=== PATIENT | female | born 1960 | race Hispanic/Latino ===

== ENCOUNTER 2018-10-25 08:46 | Emergency (ER) | payer OTHER ==
--- OUTSIDE RECORDS SUMMARY | 2018-10-25 08:55 | XMS REPORT ---
:1960 [facility] Address [address] [place] [address] Dr. Mazariegos. [address] [place] [id number] Care Team Providers Name Role Phone Unavailable Unavailable Unavailable Problems This patient has no known problems. Allergies, Adverse Reactions, Alerts This patient has no known allergies or adverse reactions. Medications This patient has no known medications.
[2018-10-25 09:12] LABS: Absolute Lymphocytes (CBC) 0.3 K/uL (0.7-4.9); Basophils % 0.3 % (0-1.3); Hematocrit 45.3 % (36.0-45.0); MPV 9.3 fL (7.6-11.3); Monocytes % 2.7 % (3.3-12.3); RBC Red Blood Cell Count 5.13 M/uL (3.86-4.86)
[2018-10-25] MEDS ORDERED: ONDANSETRON 4 MG/2 ML VIAL ONE (09:18)
[2018-10-25] MEDS ORDERED: MEPERIDINE HCL 25 MG/0.5 ML ONE (09:18)
[2018-10-25 09:34] LABS: Albumin 4.4 g/dL (3.4-5.0); Bilirubin Direct 0.3 mg/dL (0-0.2); Bilirubin Total 1.8 mg/dL (0.2-1.0); Potassium 3.6 mmol/L (3.5-5.1); Protein, Total 8.5 g/dL (6.4-8.2)
[2018-10-25] MEDS ORDERED: NA CHLORIDE 0.9% 1,000 ML ONE (10:00)
[2018-10-25 10:29] LABS: Blood Morphology Comment NOT SEEN (NOT SEEN); Platelet Estimate ADEQ; Urine White Blood Cell Casts OK
--- NOTE | 2018-10-25 10:30 | RAD REPORT ---
EXAM DESCRIPTION: CTAbdomen Pelvis W Contrast - 10/25/2018 10:22 am CLINICAL HISTORY: Abdominal pain. Abd pain;Nausea / vomiting COMPARISON: No comparisons TECHNIQUE: Biphasic CT imaging of the abdomen and pelvis was performed with 100 ml non-ionic IV cont rast. All CT scans are performed using dose optimization technique as appropriate and may include automated exposure control or mA/KV adjustment according to patient size. FINDINGS: The lung bases are clear. Diffuse fatty liver. Cholecystectomy clips. The spleen, pancreas, adrenal glands and kidneys are with in normal limits. No bowel obstruction, free air, free fluid or abscess. Prominent sigmoid diverticulosis coli in the l eft lower quadrant seen with surrounding reticulation in pericolonic fat suggesting very early acute diverticulitis. No abscess. The appendix is normal. No evidence of significant lymphadenopathy. No suspicious bony findings. IMPRESSION: Very early left lower quadrant sigmoid acute diverticulitis is suspected. Prominent fatty liver infiltration.
[2018-10-25] MEDS ORDERED: CIPROFLOXACIN 400mg IV 400 MG/200 ML BAG IV ONE (11:21)
[2018-10-25] MEDS ORDERED: METRONIDAZOLE 500mg IVPB 500 MG/100 ML BAG IV ONE (11:21)
--- NOTE | 2018-10-25 11:21 | ER ---
Nurse's Notes [facility] Name: Diamond Sterling Age: 58 yrs Sex: Female : 1960 Arrival Date: 10/25/2018 Time: 08:50 Bed 7 Private MD: Unknown, Unknown Diagnosis: Diverticulitis of large intestine without perforation or abscess without bleeding Presentation: 10/25 08:56 Presenting complaint: Patient states: upper abdominal pain, vomiting, diarrhea, fever iw since last night. Transition of care: patient was not received from another setting of care. Onset of symptoms was October 24, 2018. Risk Assessment: Do you want to hurt yourself or someone else? Patient reports no desire to harm self or others. Initial Sepsis Screen: Does the patient meet any 2 criteria? No. Patient's initial sepsis screen is negative. Does the patient have a suspected source of infection? No. Patient's initial sepsis screen is negative. Care prior to arrival: None. 08:56 Method Of Arrival: Ambulatory iw 08:56 Acuity: SANIA 3 iw Triage Assessment: 09:00 General: Appears in no apparent distress. comfortable, Behavior is cooperative, bp appropriate for age, anxious. Pain: Complains of pain in abdomen. EENT: No deficits noted. Neuro: Level of Consciousness is awake, alert, obeys commands, Oriented to person, place, time, situation, Appropriate for age. Cardiovascular: No deficits noted. Respiratory: No deficits noted. GI: Reports upper abdominal pain, diarrhea, nausea, vomiting. : No signs and/or symptoms were reported regarding the genitourinary system. Derm: No deficits noted. Musculoskeletal: No deficits noted. Historical: - Allergies: 08:59 Benadryl; iw - Home Meds: 08:59 Lisinopril Oral once daily [Active]; Metoprolol Tartrate Oral [Active]; unknown anxiety iw medicine [Active]; - PMHx: 08:59 Anxiety; Hypertension; Migraines; iw - PSHx: 08:59 ; Cholecystectomy; iw - Immunization history:: Adult Immunizations not up to date. - Social history:: Smoking status: Patient/guardian denies using tobacco. - Ebola Screening: : Patient negative for fever greater than or equal to 101.5 degrees Fahrenheit, and additional compatible Ebola Virus Disease symptoms Patient denies exposure to infectious person Patient denies travel to an Ebola-affected area in the 21 days before illness onset No symptoms or risks identified at this time. - Family history:: not pertinent. - Hospitalizations: : No recent hospitalization is reported. Screenin:58 Abuse screen: Denies threats or abuse. Denies injuries from another. Nutritional bp screening: No deficits noted. Tuberculosis screening: No symptoms or risk factors identified. Fall Risk None identified. Assessment: 08:57 General: Appears in no apparent distress. comfortable, Behavior is cooperative, bp appropriate for age, anxious. Pain: Complains of pain in abdomen. Neuro: No deficits noted. Cardiovascular: No deficits noted. Respiratory: Airway is patent Respiratory effort is even, unlabored, Respiratory pattern is regular, symmetrical. GI: Abdomen is non-distended, Bowel sounds present X 4 quads. : No signs and/or symptoms were reported regarding the genitourinary system. EENT: No deficits noted. Derm: No deficits noted. Musculoskeletal: No deficits noted. 09:48 Reassessment: CT PENDING, IVF INFUSING. bp 11:16 Reassessment: ALL CURRENT ORDERS COMPLETED, ABX INFUSING. bp 12:54 Reassessment: PT D/C HOME AMBULATORY WITH FAMILY, DX WITH DIVERTICULITIS. bp Vital Signs: 08:59 BP 124 / 84; Pulse 110; Resp 16 S; Temp 97.6(TE); Pulse Ox 98% on R/A; Weight 58.97 kg; iw Height 4 ft. 10 in. (147.32 cm); Pain 10/10; 09:49 BP 107 / 74; Pulse 106; Resp 18; Pulse Ox 95% ; bp 11:00 BP 111 / 71; Pulse 93; Resp 16; Pulse Ox 97% ; bp 12:55 BP 116 / 92; Pulse 86; Resp 16; Temp 98; Pulse Ox 96% ; bp 08:59 Body Mass Index 27.17 (58.97 kg, 147.32 cm) iw ED Course: 08:50 Patient arrived in ED. ag5 08:50 Unknown, Unknown is Private Physician. ag5 08:51 Rohan Cabrera MD is Attending Physician. rn 08:53 Maxwell Altman, YAMILETH is Primary Nurse. bp 08:57 Triage completed. iw 08:58 Patient has correct armband on for positive identification. Bed in low position. Call bp light in reach. Side rails up X2. Adult w/ patient. 08:59 Arm band placed on. iw 09:08 Radiology exam delayed due to lab results not completed at this time. (BUN/Creatinine). vm2 09:08 Inserted saline lock: 20 gauge in right antecubital area, using aseptic technique. ag Blood collected. 09:08 Basic Metabolic Panel Sent. ag 09:08 CBC with Diff Sent. ag 09:08 Hepatic Function Sent. ag 09:08 Lipase Sent. ag 10:22 CT Abd/Pelvis - IV Contrast Only In Process Unspecified. EDMS 12:56 No provider procedures requiring assistance completed. IV discontinued, intact, bp bleeding controlled, No redness/swelling at site. Pressure dressing applied. Administered Medications: 09:09 Drug: Zofran 4 mg Route: IVP; Site: right antecubital; bp 09:48 Follow up: Response: Nausea is decreased bp 09:09 Drug: Demerol 25 mg Route: IVP; Site: right antecubital; bp 09:48 Follow up: Response: Pain is decreased bp 09:47 Drug: NS 0.9% 1000 ml Route: IV; Rate: 1000 ml; Site: right antecubital; bp 11:00 Follow up: IV Status: Completed infusion; IV Intake: 1000ml bp 11:14 Drug: Flagyl 500 mg Volume: 100 ml; Route: IVPB; Rate: 200 ml/hr; Infused Over: 30 bp mins; Site: right antecubital; 11:46 Follow up: IV Status: Completed infusion; IV Intake: 100ml bp 11:46 Drug: Cipro 400 mg Volume: 200 ml; Route: IVPB; Infused Over: 60 mins; Site: right bp antecubital; 12:57 Follow up: IV Status: Completed infusion; IV Intake: 200ml bp Intake: 11:00 IV: 1000ml; Total: 1000ml. bp 11:46 IV: 100ml; Total: 1100ml. bp 12:57 IV: 200ml; Total: 1300ml. bp Outcome: 11:20 Discharge ordered by . rn 12:55 Discharged to home ambulatory, with family. bp 12:55 Condition: stable 12:55 Discharge instructions given to patient, Instructed on discharge instructions, follow up and referral plans. medication usage, Demonstrated understanding of instructions, follow-up care, medications, Prescriptions given X 4. 12:58 Patient left the ED. bp Signatures: Dispatcher [employer] Luisa Mojica RN RN iw Nieto, Roman, MD MD rn Gallardo, Ana ag McGuire, [facility] Maxwell Altman RN RN bp Gaskin, Ajare ag5
--- NOTE | 2018-10-25 11:21 | EDPHYS ---
Physician Documentation [facility] Name: Diamond Sterling Age: 58 yrs Sex: Female : 1960 Arrival Date: 10/25/2018 Time: 08:50 Bed 7 Private MD: Unknown, Unknown ED Physician Rohan Cabrera HPI: 10/25 09:00 This 58 yrs old Female presents to ER via Ambulatory with complaints of rn Nausea/Vomiting/Diarrhea, Fever, Abdominal Pain. 09:00 The patient presents to the emergency department with nausea, vomiting, diarrhea, rn abdominal pain, of the abdomen diffusely. Onset: The symptoms/episode began/occurred yesterday. Possible causes: unknown. The symptoms are aggravated by nothing. The symptoms are alleviated by nothing. Severity of symptoms: At their worst the symptoms were moderate in the emergency department the symptoms are unchanged. The patient has experienced a previous episode. Reports ate subway yesterday, felt ok, then sudden onset mid abd pain, assoc with nausea/vomiting/diarrhea, has had before and went away after a few days, + cholecystectomy in past, no fever. . Historical: - Allergies: 08:59 Benadryl; iw - Home Meds: 08:59 Lisinopril Oral once daily [Active]; Metoprolol Tartrate Oral [Active]; unknown anxiety iw medicine [Active]; - PMHx: 08:59 Anxiety; Hypertension; Migraines; iw - PSHx: 08:59 ; Cholecystectomy; iw - Immunization history:: Adult Immunizations not up to date. - Social history:: Smoking status: Patient/guardian denies using tobacco. - Ebola Screening: : Patient negative for fever greater than or equal to 101.5 degrees Fahrenheit, and additional compatible Ebola Virus Disease symptoms Patient denies exposure to infectious person Patient denies travel to an Ebola-affected area in the 21 days before illness onset No symptoms or risks identified at this time. - Family history:: not pertinent. - Hospitalizations: : No recent hospitalization is reported. ROS: 09:00 Constitutional: Negative for fever, chills, and weight loss, Eyes: Negative for injury, rn pain, redness, and discharge, Neck: Negative for injury, pain, and swelling, Cardiovascular: Negative for chest pain, palpitations, and edema, Respiratory: Negative for shortness of breath, cough, wheezing, and pleuritic chest pain, Abdomen/GI: + abd pain with nausea/vomiting/diarrhea MS/Extremity: Negative for injury and deformity, Skin: Negative for injury, rash, and discoloration, Neuro: Negative for headache, weakness, numbness, tingling, and seizure. Exam: 09:00 Constitutional: This is a well developed, well nourished patient who is awake, alert, rn and in no acute distress. Head/Face: Normocephalic, atraumatic. ENT: MMM Cardiovascular: Tachycardic, regular, no murmur Respiratory: Lungs have equal breath sounds bilaterally, clear to auscultation Abdomen/GI: soft, + tenderness in all quadrants, no rebound, no masses Skin: Warm, dry with normal turgor. Normal color with no rashes, no lesions, and no evidence of cellulitis. MS/ Extremity: Pulses equal, no cyanosis. Neurovascular intact. Full, normal range of motion. Equal circumference. Neuro: Awake and alert, GCS 15, oriented to person, place, time, and situation. Cranial nerves II-XII grossly intact. Motor strength 5/5 in all extremities. Sensory grossly intact. Cerebellar exam normal. Normal gait. Vital Signs: 08:59 BP 124 / 84; Pulse 110; Resp 16 S; Temp 97.6(TE); Pulse Ox 98% on R/A; Weight 58.97 kg; iw Height 4 ft. 10 in. (147.32 cm); Pain 10/10; 09:49 BP 107 / 74; Pulse 106; Resp 18; Pulse Ox 95% ; bp 11:00 BP 111 / 71; Pulse 93; Resp 16; Pulse Ox 97% ; bp 12:55 BP 116 / 92; Pulse 86; Resp 16; Temp 98; Pulse Ox 96% ; bp 08:59 Body Mass Index 27.17 (58.97 kg, 147.32 cm) iw MDM: 08:51 Patient medically screened. rn 11:19 Differential diagnosis: diverticulitis, viral gastroenteritis, gastroenteritis. Data rn reviewed: vital signs, nurses notes, lab test result(s), radiologic studies, CT scan, and as a result, I will discharge patient. Counseling: I had a detailed discussion with the patient and/or guardian regarding: the historical points, exam findings, and any diagnostic results supporting the discharge/admit diagnosis, lab results, radiology results, the need for outpatient follow up, to return to the emergency department if symptoms worsen or persist or if there are any questions or concerns that arise at home. Response to treatment: the patient's symptoms have markedly improved after treatment, and as a result, I will discharge patient. Special discussion: I discussed with the patient/guardian in detail that at this point there is no indication for admission to the hospital. It is understood, however, that if the symptoms persist or worsen the patient needs to return immediately for re-evaluation. 10/25 08:58 Order name: Basic Metabolic Panel; Complete Time: 09:42 rn 10/25 08:58 Order name: CBC with Diff; Complete Time: 10:31 rn 10/25 08:58 Order name: Hepatic Function; Complete Time: 09:42 rn 10/25 08:58 Order name: Lipase; Complete Time: 09:42 rn 10/25 08:58 Order name: CT Abd/Pelvis - IV Contrast Only; Complete Time: 10:31 rn 10/25 10:29 Order name: CBC Smear Scan; Complete Time: 10:31 EDMS 10/25 08:58 Order name: IV Saline Lock; Complete Time: 09:08 rn 10/25 08:58 Order name: Labs collected and sent; Complete Time: 09:09 rn Administered Medications: 09:09 Drug: Zofran 4 mg Route: IVP; Site: right antecubital; bp 09:48 Follow up: Response: Nausea is decreased bp 09:09 Drug: Demerol 25 mg Route: IVP; Site: right antecubital; bp 09:48 Follow up: Response: Pain is decreased bp 09:47 Drug: NS 0.9% 1000 ml Route: IV; Rate: 1000 ml; Site: right antecubital; bp 11:00 Follow up: IV Status: Completed infusion; IV Intake: 1000ml bp 11:14 Drug: Flagyl 500 mg Volume: 100 ml; Route: IVPB; Rate: 200 ml/hr; Infused Over: 30 bp mins; Site: right antecubital; 11:46 Follow up: IV Status: Completed infusion; IV Intake: 100ml bp 11:46 Drug: Cipro 400 mg Volume: 200 ml; Route: IVPB; Infused Over: 60 mins; Site: right bp antecubital; 12:57 Follow up: IV Status: Completed infusion; IV Intake: 200ml bp Disposition: 10/25/18 11:20 Discharged to Home. Impression: Diverticulitis of large intestine without perforation or abscess without bleeding. - Condition is Stable. - Discharge Instructions: Diverticulitis. - Prescriptions for Zofran ODT 4 mg Oral tablet,disintegrating - place 1 tablet by TRANSLINGUAL route every 8 hours As needed; 15 tablet. Flagyl 500 mg Oral Tablet - take 1 tablet by ORAL route every 8 hours for 10 days; 30 tablet. Tylenol- Codeine #3 300-30 mg Oral Tablet - take 1 tablet by ORAL route every 6 hours As needed; 15 tablet. Cipro 500 mg Oral Tablet - take 1 tablet by ORAL route every 12 hours for 10 days; 20 tablet. - Medication Reconciliation Form, Thank You Letter, Antibiotic Education, Prescription Opioid Use, Work release form form. - Follow up: Private Physician; When: As needed; Reason: Recheck today's complaints, Re-evaluation by your physician. - Problem is new. - Symptoms have improved. Signatures: Dispatcher [employer] EDLuisa Mora RN RN iw Nieto, Roman, MD MD rn Peltier, Brian, RN RN bp Corrections: (The following items were deleted from the chart) 12:58 11:20 10/25/2018 11:20 Discharged to Home. Impression: Diverticulitis of large bp intestine without perforation or abscess without bleeding. Condition is Stable. Forms are Medication Reconciliation Form, Thank You Letter, Antibiotic Education, Prescription Opioid Use. Follow up: Private Physician; When: As needed; Reason: Recheck today's complaints, Re-evaluation by your physician. Problem is new. Symptoms have improved. rn
== END 2018-10-25 12:58 | disposition home or self-care (01) ==
LOC: ER 08:46
DX: K57.32 Diverticulitis of large intestine without perforation or abscess without bleeding (principal); I10 Essential (primary) hypertension; F41.9 Anxiety disorder, unspecified
CPT/HCPCS: 36415; 74177; 80048; 80076; 83690; 85025; 96361; 96365; 96367; 96375; 99284; J0744; J2175; J2405; J7030; Q9967

== ENCOUNTER 2018-12-07 09:20 | Emergency (ER) | payer OTHER ==
--- OUTSIDE RECORDS SUMMARY | 2018-12-07 09:22 | XMS REPORT ---
:1960 [facility] Address [address] [place] [address] Dr. Mazariegos. [address] [place] [id number] Care Team Providers Name Role Phone Unavailable Unavailable Unavailable Problems This patient has no known problems. Allergies, Adverse Reactions, Alerts This patient has no known allergies or adverse reactions. Medications This patient has no known medications.
[2018-12-07] MEDS ORDERED: NA CHLORIDE 0.9% 1,000 ML ONE (09:58)
[2018-12-07] MEDS ORDERED: ONDANSETRON 4 MG/2 ML VIAL ONE (09:58)
[2018-12-07 10:18] LABS: Absolute Lymphocytes (CBC) 1.1 K/uL (0.7-4.9); Basophils % 0.5 % (0-1.3); Hematocrit 36.8 % (36.0-45.0); Lymphocytes % 18.5 % (15.3-44.8); MPV 9.3 fL (7.6-11.3); RBC Red Blood Cell Count 4.21 M/uL (3.86-4.86)
[2018-12-07 10:43] LABS: Urine Blood TRACE (NEG); Urine Glucose NEGATIVE (NEG); Urine Protein NEGATIVE (NEG); Urine Specific Gravity 1.025 (1.005-1.030); Urine pH 5.5 (5.0-7.0)
[2018-12-07 10:45] LABS: Urine Bacteria NONE SEEN /HPF (<20); Urine Culture Reflex Order NOT NEEDED; Urine Mucus LIGHT /HPF (NONE SEEN); Urine RBC <5 /HPF (NONE SEEN)
[2018-12-07 10:46] LABS: Potassium 3.3 mmol/L (3.5-5.1)
[2018-12-07] MEDS ORDERED: POTASSIUM CL SA 10 MEQ TAB PO ONE (11:21)
--- NOTE | 2018-12-07 11:29 | RAD REPORT ---
EXAM DESCRIPTION: CT - Abdomen Pelvis W Contrast - 12/07/2018 11:05 am CLINICAL HISTORY: ABD PAIN, history of diverticulitis, prior cholecystectomy COMPARISON: April 27, 2018 CT study TECHNIQUE: Biphasic, helical CT imaging of the abdomen and pelvis was performed following 100 ml non -ionic IV contrast. Oral contrast was given. All CT scans are performed using dose optimization technique as appropriate and may include automated exposure control or mA/KV adjustment according to patient size. FINDINGS: No suspicious findings in the lung bases. Fatty infiltration is present in the liver. No focal liver lesion identified. Spleen and pancreas [place] w no suspicious findings. Gallbladder is absent. Biliary tree within normal limits for a post cholecy stectomy patient. Symmetric renal function is seen with no hydronephrosis or suspicious renal mass. No pyelonephritis o r acute parenchymal process. No bladder abnormalities. No adrenal abnormalities. Uterus and ovaries s how no suspicious findings. No gastric dilatation or wall thickening. A small hiatal hernia is present. No small bowel abnormalit y seen. The appendix is normal. Colon from cecum to hepatic flexure shows no suspicious finding. Ther e is descending and sigmoid diverticulosis. In the mid sigmoid colon there is wall thickening. Minima l amount of stranding is present in the adjacent fat. No abscess or extraluminal air. Patient gives a history of diverticulitis 1 month earlier. Sigmoid findings are more prominent than seen on the October 25 study. It is unknown if the patient's diverticulitis diagnosis was subsequent to the October 25 stud y. Current presentation could be mild acute diverticulitis or remnant diverticulitis from a prior hector dy. Colon malignancy is not excluded but warrants follow-up colonoscopy after all medical management is completed. No free air, free fluid or pneumatosis. No other areas of inflammatory stranding. No mass or bulky lymphadenopathy. Small fat only umbilical hernia present. No suspicious bony findings. IMPRESSION: Mild sigmoid diverticulitis findings are evident more prominent than seen on the October 25 study. Patient gives a history of diverticulitis 1 month earlier. It is unknown if that diagnosis was made s ubsequent to the October 25 CT study. No abscess, free air or surgically emergent complication. The current sigmoid presentation could represent a new diverticulitis or may represent remnant from t he prior diagnosis. Colon mass cannot be excluded and colonoscopy is needed following completion of all medical managemen t.
--- NOTE | 2018-12-07 11:58 | ER ---
Nurse's Notes [facility] Name: Diamond Sterling Age: 58 yrs Sex: Female : 1960 Arrival Date: 12/07/2018 Time: 09:22 Bed 8 Private MD: Diagnosis: Diverticulitis of intestine, part unspecified, without perforation or abscess without bleeding Presentation: 12/07 09:46 Presenting complaint: Patient states: generalized abd pain. Patient reports that she ss had diverticulitis months ago and it feels the same. Transition of care: patient was not received from another setting of care. Onset of symptoms is unknown. Risk Assessment: Do you want to hurt yourself or someone else? Patient reports no desire to harm self or others. Initial Sepsis Screen: Does the patient meet any 2 criteria? No. Patient's initial sepsis screen is negative. Does the patient have a suspected source of infection? No. Patient's initial sepsis screen is negative. Care prior to arrival: None. 09:46 Method Of Arrival: Ambulatory ss 09:46 Acuity: SANIA 3 ss Triage Assessment: 09:50 General: Appears in no apparent distress. comfortable, Behavior is cooperative, bp appropriate for age, anxious. Pain: Complains of pain in abdomen. EENT: No deficits noted. Neuro: No deficits noted. Cardiovascular: No deficits noted. Respiratory: No deficits noted. GI: Reports lower abdominal pain, nausea. : No deficits noted. Derm: No deficits noted. Musculoskeletal: No deficits noted. Historical: - Allergies: 09:48 Benadryl; ss - PMHx: 09:48 Anxiety; Hypertension; Migraines; Diverticulitis; ss - PSHx: 09:48 ; Cholecystectomy; ss - Immunization history:: Adult Immunizations up to date. - Social history:: Smoking status: Patient/guardian denies using tobacco. - Ebola Screening: : Patient denies exposure to infectious person Patient denies travel to an Ebola-affected area in the 21 days before illness onset. Screenin:00 Abuse screen: Denies threats or abuse. Denies injuries from another. Nutritional bp screening: No deficits noted. Tuberculosis screening: No symptoms or risk factors identified. Fall Risk None identified. Assessment: 09:50 General: SEE TRIAGE NOTE. bp 10:10 GI: Bowel sounds present X 4 quads. Abd is soft X 4 quads. bp 11:47 Reassessment: ALL CURRENT ORDERS COMPLETED, CT RESULTS PENDING. bp 12:15 Reassessment: PT D/C HOME AMBULATORY, DX WITH DIVERTICULITIS. bp Vital Signs: 09:48 BP 147 / 83; Pulse 90; Resp 16; Temp 98.0(TE); Pulse Ox 98% on R/A; Weight 54.43 kg; ss Height 4 ft. 10 in. (147.32 cm); Pain 0/10; 10:39 BP 123 / 77; Pulse 81; Resp 18; Pulse Ox 95% on R/A; ph 11:47 BP 119 / 70; Pulse 86; Resp 16; Pulse Ox 99% ; bp 12:15 BP 114 / 61; Pulse 86; Resp 16; Temp 98; Pulse Ox 97% ; bp 09:48 Body Mass Index 25.08 (54.43 kg, 147.32 cm) ED Course: 09:22 Patient arrived in ED. mr 09:23 Gricelda Bahena, [facility]F [facility] kb 09:23 Yevgeniy Braun MD is Attending Physician. kb 09:38 Maxwell Altman, YAMILETH is Primary Nurse. bp 09:48 Triage completed. ss 09:48 Arm band placed on right wrist. ss 09:50 Radiology exam delayed due to lab results not completed at this time. (BUN/Creatinine). kw1 10:00 Patient has correct armband on for positive identification. Placed in gown. Bed in low bp position. Call light in reach. Side rails up X2. 10:10 Inserted saline lock: 20 gauge in right forearm, using aseptic technique. Blood bp collected. 11:04 CT completed. Patient tolerated procedure well. Patient moved to CT via stretcher. Patient moved back from CT. 11:23 CT Abd/Pelvis - IV Contrast Only In Process Unspecified. EDMS 12:16 No provider procedures requiring assistance completed. IV discontinued, intact, bp bleeding controlled, No redness/swelling at site. Pressure dressing applied. Administered Medications: 10:08 Drug: NS 0.9% 1000 ml Route: IV; Rate: 1000 ml; Site: right forearm; bp 12:09 Follow up: IV Status: Completed infusion bp 10:09 Drug: Zofran 4 mg Route: IVP; Site: right forearm; bp 11:18 Follow up: Response: No adverse reaction bp 11:26 Drug: Potassium Chloride 20 mEq Route: PO; rv 11:59 Follow up: Response: No adverse reaction bp 12:09 Drug: Cipro 500 mg Route: PO; bp 12:15 Follow up: Response: Medication administered at discharge. bp 12:09 Drug: Flagyl 500 mg Route: PO; bp 12:14 Follow up: Response: No adverse reaction; Medication administered at discharge. bp Outcome: 11:57 Discharge ordered by . mauri 12:16 Discharged to home ambulatory. bp 12:16 Condition: stable 12:16 Discharge instructions given to patient, Instructed on discharge instructions, follow up and referral plans. medication usage, Demonstrated understanding of instructions, follow-up care, medications, Prescriptions given X 4. 12:17 Patient left the ED. bp Signatures: Dispatcher [employer] EDMS Gricelda Bahena, EXTENSION PROFESSOR-C EXTENSION PROFESSOR-Yanet CatarinoLiliam mr Morillo, Yolie Mullins RN RN ss Sayra Davenport RN RN Maxwell Altman RN RN Gely Tovar kw1 Torin Quintana RN RN rv
--- NOTE | 2018-12-07 11:58 | EDPHYS ---
Physician Documentation [facility] Name: Diamond Sterling Age: 58 yrs Sex: Female : 1960 Arrival Date: 12/07/2018 Time: 09:22 Bed 8 Private MD: ED Physician Yevgeniy Braun HPI: 12/07 12:01 This 58 yrs old Female presents to ER via Ambulatory with complaints of kb Abdominal Pain. 12:01 The patient presents with abdominal pain in the left lower quadrant. Onset: The kb symptoms/episode began/occurred yesterday. The symptoms do not radiate. Associated signs and symptoms: Pertinent positives: nausea and vomiting. The symptoms are described as constant. Modifying factors: The symptoms are alleviated by nothing, the symptoms are aggravated by nothing. Severity of pain: At its worst the pain was moderate in the emergency department the pain is unchanged. The patient has experienced a previous episode. The patient has been recently seen at the [facility] Emergency Department, last month, for similar complaints. Pt reports she started feeling like she was getting sick a week ago. STates pain started yesterday, then got better. Today pain came back and has been constant. Was diagnosed with diverticulitis last month and it feels the same. States she didn't take her antibiotics like she was supposed to, only took it once a day and it was supposed to be three times per day. . Historical: - Allergies: 09:48 Benadryl; ss - PMHx: 09:48 Anxiety; Hypertension; Migraines; Diverticulitis; ss - PSHx: 09:48 ; Cholecystectomy; ss - Immunization history:: Adult Immunizations up to date. - Social history:: Smoking status: Patient/guardian denies using tobacco. - Ebola Screening: : Patient denies exposure to infectious person Patient denies travel to an Ebola-affected area in the 21 days before illness onset. ROS: 12:04 Constitutional: Negative for fever, chills, and weight loss, ENT: Negative for injury, kb pain, and discharge, Neck: Negative for injury, pain, and swelling, Cardiovascular: Negative for chest pain, palpitations, and edema, Respiratory: Negative for shortness of breath, cough, wheezing, and pleuritic chest pain, Back: Negative for injury and pain, : Negative for injury, bleeding, discharge, and swelling, MS/Extremity: Negative for injury and deformity, Skin: Negative for injury, rash, and discoloration, Neuro: Negative for headache, weakness, numbness, tingling, and seizure. 12:04 Abdomen/GI: Positive for abdominal pain, nausea and vomiting, Negative for diarrhea, constipation, abdominal cramps, abdominal distension, anorexia. Exam: 12:04 Constitutional: This is a well developed, well nourished patient who is awake, alert, kb and in no acute distress. Head/Face: Normocephalic, atraumatic. ENT: Nares patent. No nasal discharge, no septal abnormalities noted. Tympanic membranes are normal and external auditory canals are clear. Oropharynx with no redness, swelling, or masses, exudates, or evidence of obstruction, uvula midline. Mucous membranes moist. Neck: Trachea midline, no thyromegaly or masses palpated, and no cervical lymphadenopathy. Supple, full range of motion without nuchal rigidity, or vertebral point tenderness. No Meningismus. Chest/axilla: Normal chest wall appearance and motion. Nontender with no deformity. No lesions are appreciated. Cardiovascular: Regular rate and rhythm with a normal S1 and S2. No gallops, murmurs, or rubs. Normal PMI, no JVD. No pulse deficits. Respiratory: Lungs have equal breath sounds bilaterally, clear to auscultation and percussion. No rales, rhonchi or wheezes noted. No increased work of breathing, no retractions or nasal flaring. Back: No spinal tenderness. No costovertebral tenderness. Full range of motion. Skin: Warm, dry with normal turgor. Normal color with no rashes, no lesions, and no evidence of cellulitis. MS/ Extremity: Pulses equal, no cyanosis. Neurovascular intact. Full, normal range of motion. Neuro: Awake and alert, GCS 15, oriented to person, place, time, and situation. Cranial nerves II-XII grossly intact. Motor strength 5/5 in all extremities. Sensory grossly intact. Cerebellar exam normal. Normal gait. 12:04 Abdomen/GI: Inspection: abdomen appears normal, Bowel sounds: normal, in all quadrants, Palpation: soft, in all quadrants, moderate abdominal tenderness, in the left lower quadrant. Vital Signs: 09:48 BP 147 / 83; Pulse 90; Resp 16; Temp 98.0(TE); Pulse Ox 98% on R/A; Weight 54.43 kg; ss Height 4 ft. 10 in. (147.32 cm); Pain 0/10; 10:39 BP 123 / 77; Pulse 81; Resp 18; Pulse Ox 95% on R/A; ph 11:47 BP 119 / 70; Pulse 86; Resp 16; Pulse Ox 99% ; bp 12:15 BP 114 / 61; Pulse 86; Resp 16; Temp 98; Pulse Ox 97% ; bp 09:48 Body Mass Index 25.08 (54.43 kg, 147.32 cm) ss MDM: 09:31 Patient medically screened. kb 11:56 Data reviewed: vital signs, nurses notes. Data interpreted: Pulse oximetry: on room air kb is 99 %. Interpretation: normal. Counseling: I had a detailed discussion with the patient and/or guardian regarding: the historical points, exam findings, and any diagnostic results supporting the discharge/admit diagnosis, lab results, radiology results, the need for outpatient follow up, a family practitioner, to return to the emergency department if symptoms worsen or persist or if there are any questions or concerns that arise at home. 12:05 ED course: Educated on importance of taking all antibiotics as prescribed to treat kb infection. 12/07 09:47 Order name: Basic Metabolic Panel; Complete Time: 11:05 kb 12/07 09:47 Order name: CBC with Diff; Complete Time: 10:36 kb 12/07 09:47 Order name: Urine Microscopic Only; Complete Time: 11:05 kb 12/07 09:47 Order name: CT Abd/Pelvis - IV Contrast Only; Complete Time: 11:55 kb 12/07 10:10 Order name: Urine Dipstick--Ancillary (enter results); Complete Time: 10:45 sp 12/07 09:47 Order name: IV Saline Lock; Complete Time: 10:08 kb 12/07 09:47 Order name: Labs collected and sent; Complete Time: 10:08 kb 12/07 09:47 Order name: Urine Dipstick-Ancillary (obtain specimen); Complete Time: 10:08 kb Administered Medications: 10:08 Drug: NS 0.9% 1000 ml Route: IV; Rate: 1000 ml; Site: right forearm; bp 12:09 Follow up: IV Status: Completed infusion bp 10:09 Drug: Zofran 4 mg Route: IVP; Site: right forearm; bp 11:18 Follow up: Response: No adverse reaction bp 11:26 Drug: Potassium Chloride 20 mEq Route: PO; rv 11:59 Follow up: Response: No adverse reaction bp 12:09 Drug: Cipro 500 mg Route: PO; bp 12:15 Follow up: Response: Medication administered at discharge. bp 12:09 Drug: Flagyl 500 mg Route: PO; bp 12:14 Follow up: Response: No adverse reaction; Medication administered at discharge. bp Disposition: 16:36 Co-signature as Attending Physician, Yevgeniy Braun MD I agree with the assessment and selam plan of care. Disposition: 12/07/18 11:57 Discharged to Home. Impression: Diverticulitis of intestine, part unspecified, without perforation or abscess without bleeding. - Condition is Stable. - Discharge Instructions: Diverticulitis, [id number]. - Prescriptions for Flagyl 500 mg Oral Tablet - take 1 tablet by ORAL route every 8 hours for 10 days; 30 tablet. Zofran 4 mg Oral Tablet - take 1 tablet by ORAL route every 6 hours As needed; 20 tablet. Cipro 500 mg Oral Tablet - take 1 tablet by ORAL route every 12 hours for 10 days; 20 tablet. Diclofenac Sodium 75 mg Oral Tablet, Delayed Release (E.C.) - take 1 tablet by ORAL route 2 times per day As needed; 30 tablet. - Medication Reconciliation Form, Thank You Letter, Antibiotic Education, Prescription Opioid Use form. - Follow up: Emergency Department; When: As needed; Reason: Worsening of condition. Follow up: Private Physician; When: 2 - 3 days; Reason: Recheck today's complaints, Continuance of care, Re-evaluation by your physician. Signatures: Dispatcher [employer] EDCA Gricelda Bahena, ASAF DAILEY-Yevgeniy Rossi MD MD cha Smirch, Shelby, YAMILETH RN ss Maxwell Altman RN RN Torin Vincent, YAMILETH RN rv Corrections: (The following items were deleted from the chart) 12:17 11:57 12/07/2018 11:57 Discharged to Home. Impression: Diverticulitis of intestine, bp part unspecified, without perforation or abscess without bleeding. Condition is Stable. Forms are Medication Reconciliation Form, Thank You Letter, Antibiotic Education, Prescription Opioid Use. Follow up: Emergency Department; When: As needed; Reason: Worsening of condition. Follow up: Private Physician; When: 2 - 3 days; Reason: Recheck today's complaints, Continuance of care, Re-evaluation by your physician. kb
[2018-12-07] MEDS ORDERED: metroNIDAZOLE 500 MG TABLET ONE (12:04)
[2018-12-07] MEDS ORDERED: CIPROFLOXACIN HCL 500 MG TAB ONE (12:05)
== END 2018-12-07 12:17 | disposition home or self-care (01) ==
LOC: ER 09:20
DX: K57.92 Diverticulitis of intestine, part unspecified, without perforation or abscess without bleeding (principal); I10 Essential (primary) hypertension; Z88.8 Allergy status to other drugs, medicaments and biological substances
CPT/HCPCS: 96361; 85025; 80048; 36415; 74177; 96374; 99284; Q9967; J7030; J2405; 81003; 81015

== ENCOUNTER 2019-01-02 12:24 | Emergency (ER) | payer OTHER ==
--- OUTSIDE RECORDS SUMMARY | 2019-01-02 12:27 | XMS REPORT ---
:1960 [facility] Address [address] [place] [address] Dr. Mazariegos[address] [place] [id number] Care Team Providers Name Role Phone Unavailable Unavailable Unavailable Problems This patient has no known problems. Allergies, Adverse Reactions, Alerts This patient has no known allergies or adverse reactions. Medications This patient has no known medications.
[2019-01-02 12:51] LABS: Absolute Lymphocytes (CBC) 0.7 K/uL (0.7-4.9); Basophils % 0.2 % (0-1.3); Hematocrit 36.3 % (36.0-45.0); Lymphocytes % 6.5 % (15.3-44.8); RBC Red Blood Cell Count 4.08 M/uL (3.86-4.86)
[2019-01-02] MEDS ORDERED: NA CHLORIDE 0.9% 500 ML ONE (12:58)
[2019-01-02 13:46] LABS: Urine Blood NEGATIVE (NEG); Urine Glucose NEGATIVE (NEG); Urine Protein NEGATIVE (NEG); Urine pH 7.5 (5.0-7.0)
[2019-01-02 14:07] LABS: Albumin 3.9 g/dL (3.4-5.0); Bilirubin Direct 0.3 mg/dL (0-0.2); Bilirubin Total 1.7 mg/dL (0.2-1.0); Potassium 3.3 mmol/L (3.5-5.1); Protein, Total 7.3 g/dL (6.4-8.2)
--- NOTE | 2019-01-02 14:18 | RAD REPORT ---
EXAM DESCRIPTION: CT - Abdomen Pelvis Wo Contrast - 01/02/2019 1:55 pm CLINICAL HISTORY: left lower abdomen pain COMPARISON: Abdomen Pelvis W Contrast dated 12/07/2018 TECHNIQUE: Axial [address] imaging of the abdomen and pelvis was performed without IV contrast. No IV contrast was given because of allergy, abnormal renal function, patient refusal or physician re quest. No oral contrast. All CT scans are performed using dose optimization technique as appropriate and may include automated exposure control or mA/KV adjustment according to patient size. FINDINGS: No suspicious findings in the lung bases. The liver, spleen and pancreas show no suspicious findings on non-contrast imaging. Gallbladder is ab sent. No biliary tree dilatation. No hydronephrosis or suspicious renal mass. No significant adrenal finding. Isodense renal masses an d pyelonephritis cannot be excluded in the absence of IV contrast. The urinary bladder is without sig nificant finding. Uterus and ovaries show no suspicious findings. No stomach or small bowel acute finding. Moderate stool volume in the colon. Appendix is normal. From cecum through splenic flexure no colon abnormality seen. Sigmoid and descending colon diverticulosis is present. There is an 8 centimeter long segment of descending colon showing wall thickening with a djacent stranding. This is most likely acute diverticulitis. Colon mass is not excluded and follow-up colonoscopy needed after medical management. No free air, free fluid or pneumatosis. No abscess or e xtravasation of contrast. Very small umbilical hernia is present containing only fat. No suspicious bony findings. IMPRESSION: Acute diverticulitis involving 8 centimeter length of descending colon in the left mid a bdomen. Colon mass etiology is lesser in consideration. However, follow-up colonoscopy needed after medical m anagement. Full assessment is limited is the absence of IV contrast.
[2019-01-02 14:38] LABS: Urine Bacteria <20 /HPF (<20); Urine Culture Reflex Order REFLEXED; Urine RBC <5 /HPF (NONE SEEN)
[2019-01-02] MEDS ORDERED: POTASSIUM 25 MEQ EFFERV TAB ONE (14:41)
[2019-01-02] MEDS ORDERED: METRONIDAZOLE 500mg IVPB 500 MG/100 ML BAG IV ONE (16:01)
[2019-01-02] MEDS ORDERED: CIPROFLOXACIN HCL 500 MG TAB ONE (16:01)
[2019-01-02] MEDS ORDERED: ACETAMINOPHEN 325 MG TABLET ONE (16:05)
--- NOTE | 2019-01-02 16:13 | ER ---
Nurse's Notes [facility] Name: Diamond Sterling Age: 58 yrs Sex: Female : 1960 Arrival Date: 01/02/2019 Time: 12:30 Bed 23 Private MD: Diagnosis: Diverticulitis of large intestine without perforation or abscess without bleeding Presentation: 01/02 12:31 Presenting complaint: EMS states: At 0500 today pt started to feel intermittent ca1 abdominal pain that starts at the LLQ goes to [facility] epigastric area and back to the LLQ. Pt also c/o Nausea but denies vomiting. Pt took unknown NSAIDS that was prescribed here for diverticulitis a month ago. Pt was febrile at 102.3 tympanic. Pt has Hx of anxiety, HPN and diverticulitis. Last meal was at 1100 today. ECG 12L done with occasional PVCs. Transition of care: patient was not received from another setting of care. Onset of symptoms was January 02, 2019 at 05:00. Risk Assessment: Do you want to hurt yourself or someone else? Patient reports no desire to harm self or others. Initial Sepsis Screen: Does the patient meet any 2 criteria? No. Patient's initial sepsis screen is negative. Does the patient have a suspected source of infection? No. Patient's initial sepsis screen is negative. Care prior to arrival: Medication(s) given: Normal saline infusion, 300mL IV initiated. 20 GA, in the right antecubital area, Glucose check: 180. 12:31 Method Of Arrival: EMS: [facility] ca1 12:31 Acuity: SANIA 3 ca1 Triage Assessment: 12:36 General: Appears in no apparent distress. comfortable, Behavior is calm, cooperative, ca1 appropriate for age. Pain: Complains of pain in epigastric area and left lower quadrant Pain does not radiate. Pain currently is 0 out of 10 on a pain scale. at worst was 8 out of 10 on a pain scale. Quality of pain is described as crampy, Pain began 0500 today Is intermittent. GI: Abdomen is flat, non-distended, Bowel sounds present X 4 quads. Abd is soft X 4 quads Abdomen is tender to palpation in epigastric area and left lower quadrant Reports nausea. Historical: - Allergies: 12:36 Benadryl; ca1 - Home Meds: 12:36 Metoprolol Tartrate Oral [Active]; lisinopril Oral once daily [Active]; ca1 - PMHx: 12:36 Anxiety; Diverticulitis; Hypertension; Migraines; ca1 - PSHx: 12:36 ; Cholecystectomy; ca1 - Immunization history:: Adult Immunizations up to date. - Social history:: Smoking status: Patient/guardian denies using tobacco. - Ebola Screening: : Patient negative for fever greater than or equal to 101.5 degrees Fahrenheit, and additional compatible Ebola Virus Disease symptoms Patient denies exposure to infectious person Patient denies travel to an Ebola-affected area in the 21 days before illness onset No symptoms or risks identified at this time. Screenin:38 Abuse screen: Denies threats or abuse. Denies injuries from another. Nutritional ca1 screening: No deficits noted. Tuberculosis screening: No symptoms or risk factors identified. Fall Risk IV access (20 points). Assessment: 12:38 General: Appears in no apparent distress. comfortable, Behavior is calm, cooperative, ca1 appropriate for age. Pain: Complains of pain in left lower quadrant and epigastric area Pain does not radiate. Pain currently is 0 out of 10 on a pain scale. at worst was 8 out of 10 on a pain scale. Quality of pain is described as crampy, Pain began 0500 today Is intermittent. Neuro: Level of Consciousness is awake, alert, obeys commands, Oriented to person, place, time, situation, Appropriate for age. Cardiovascular: Capillary refill < 3 seconds Patient's skin is warm and dry. Pulses are all present. Rhythm is sinus rhythm. Respiratory: Airway is patent Respiratory effort is even, unlabored, Respiratory pattern is regular, symmetrical, Breath sounds are clear bilaterally. GI: Abdomen is flat, non-distended, Bowel sounds present X 4 quads. Abd is soft X 4 quads Abdomen is tender to palpation in epigastric area and left lower quadrant Reports nausea. : No deficits noted. No signs and/or symptoms were reported regarding the genitourinary system. EENT: No deficits noted. No signs and/or symptoms were reported regarding the EENT system. Derm: Skin is intact, is healthy with good turgor, Skin is pink, warm \T\ dry. Musculoskeletal: Circulation, motion, and sensation intact. Capillary refill < 3 seconds, Range of motion: intact in all extremities. 14:12 Reassessment: Patient appears in no apparent distress at this time. Patient and/or ca1 family updated on plan of care and expected duration. Pain level reassessed. Patient is alert, oriented x 3, equal unlabored respirations, skin warm/dry/pink. 15:14 Reassessment: Patient appears in no apparent distress at this time. Patient and/or ca1 family updated on plan of care and expected duration. Pain level reassessed. Patient is alert, oriented x 3, equal unlabored respirations, skin warm/dry/pink. 16:05 Reassessment: Patient appears in no apparent distress at this time. Patient and/or ca1 family updated on plan of care and expected duration. Pain level reassessed. Patient is alert, oriented x 3, equal unlabored respirations, skin warm/dry/pink. Pt c/o headache. Notified provider. Orders given. 16:09 Reassessment: Metronidazole infusing. Will discharge upon completion. Pt drink a cup of ca1 water and juice. Tolerated well. No c/o nausea and vomiting at this time. 16:37 Reassessment: Patient appears in no apparent distress at this time. Patient is alert, ca1 oriented x 3, equal unlabored respirations, skin warm/dry/pink. Patient states feeling better. Vital Signs: 12:36 BP 125 / 82; Pulse 93; Resp 18 S; Temp 99.9(O); Pulse Ox 100% on R/A; Weight 58.97 kg ca1 (R); Height 4 ft. 10 in. (147.32 cm) (R); Pain 0/10; 14:12 BP 143 / 73; Pulse 105; Resp 21 S; Temp 99.9(O); Pulse Ox 95% on R/A; ca1 14:49 BP 131 / 92; Pulse 102; Resp 17 S; Pulse Ox 97% on R/A; ca1 15:14 BP 123 / 85; Pulse 96; Resp 22 S; Pulse Ox 98% on R/A; ca1 16:06 BP 117 / 80; Pulse 93; Resp 15 S; Pulse Ox 97% on R/A; ca1 16:37 BP 116 / 74; Pulse 96; Resp 17 S; Temp 98.9(O); Pulse Ox 96% on R/A; ca1 12:36 Body Mass Index 27.17 (58.97 kg, 147.32 cm) ca1 ED Course: 12:30 Patient arrived in ED. ca1 12:34 Yevgeniy Hayes PA is PHCP. cp 12:34 Sunday Evans MD is Attending Physician. cp 12:35 Triage completed. ca1 12:36 Arm band placed on right wrist. ca1 12:38 Patient has correct armband on for positive identification. Placed in gown. Bed in low ca1 position. Call light in reach. Side rails up X 1. cafeteria monitor on. Pulse ox on. NIBP on. 12:38 No provider procedures requiring assistance completed. Maintain EMS IV. Dressing ca1 intact. Good blood return noted. Site clean \T\ dry. Gauge \T\ site: G20 RAC. 12:57 Urine Microscopic Only Sent. lt1 13:26 Mini Gramajo RN is Primary Nurse. ca1 16:08 Ugo Narayanan MD is Referral Physician. cp 16:38 IV discontinued, intact, bleeding controlled, No redness/swelling at site. Pressure ca1 dressing applied. Administered Medications: 12:41 Drug: NS 0.9% 500 ml Route: IV; Rate: bolus; Site: right antecubital; ca1 13:30 Follow up: Urine output 150 ml; Response: No adverse reaction; IV Status: Completed ca1 infusion 14:42 Drug: Potassium Effervescent Tablet 50 mEq Route: PO; ca1 15:19 Follow up: Response: No adverse reaction ca1 16:00 Drug: Cipro 500 mg Route: PO; ca1 16:01 Drug: metroNIDAZOLE 500 mg Volume: 100 ml; Route: IVPB; Infused Over: 30 mins; Site: ca1 right antecubital; 16:05 Drug: Tylenol 650 mg Route: PO; ca1 Output: 13:30 Urine: 150ml; Total: 150ml. ca1 Outcome: 16:08 Discharge ordered by . cp 16:38 Discharged to home ambulatory, with family. ca1 16:38 Condition: stable 16:38 Discharge instructions given to patient, Instructed on discharge instructions, follow up and referral plans. medication usage, Demonstrated understanding of instructions, follow-up care, medications, Prescriptions given X 4. 16:39 Patient left the ED. ca1 Signatures: Yevgeniy Hayes PA PA cp Mini Gramajo RN RN ca1 Estrellita Forman lt1
--- NOTE | 2019-01-02 16:14 | EDPHYS ---
Physician Documentation [facility] Name: Diamond Sterling Age: 58 yrs Sex: Female : 1960 Arrival Date: 01/02/2019 Time: 12:30 Bed 23 Private MD: ED Physician Sunday Evans HPI: 01/02 12:40 This 58 yrs old Female presents to ER via EMS with complaints of Abd Pain > 50 cp y/o. 12:40 The patient presents with abdominal pain in the left lower quadrant. cp 12:40 Onset: The symptoms/episode began/occurred this morning. The symptoms radiate to cp epigastric area. Associated signs and symptoms: Pertinent positives: fever, nausea, Pertinent negatives: blood in stools, chest pain, constipation, dysuria, headache, vomiting. Historical: - Allergies: 12:36 Benadryl; ca1 - Home Meds: 12:36 Metoprolol Tartrate Oral [Active]; lisinopril Oral once daily [Active]; ca1 - PMHx: 12:36 Anxiety; Diverticulitis; Hypertension; Migraines; ca1 - PSHx: 12:36 ; Cholecystectomy; ca1 - Immunization history:: Adult Immunizations up to date. - Social history:: Smoking status: Patient/guardian denies using tobacco. - Ebola Screening: : Patient negative for fever greater than or equal to 101.5 degrees Fahrenheit, and additional compatible Ebola Virus Disease symptoms Patient denies exposure to infectious person Patient denies travel to an Ebola-affected area in the 21 days before illness onset No symptoms or risks identified at this time. ROS: 12:45 Constitutional: Negative for body aches, chills, fever, poor PO intake. cp 12:45 Eyes: Negative for injury, pain, redness, and discharge. cp 12:45 ENT: Negative for drainage from ear(s), ear pain, sore throat, difficulty swallowing, difficulty handling secretions. 12:45 Cardiovascular: Negative for chest pain, edema, palpitations. 12:45 Respiratory: Negative for cough, shortness of breath, wheezing. 12:45 Abdomen/GI: Positive for abdominal pain, nausea, Negative for vomiting, diarrhea, constipation, black/tarry stool, rectal bleeding. 12:45 Back: Negative for radiated pain. 12:45 : Negative for urinary symptoms, flank pain, vaginal bleeding, vaginal discharge. 12:45 Skin: Negative for rash. 12:45 Neuro: Negative for altered mental status, headache, weakness. 12:45 All other systems are negative. Exam: 12:55 Constitutional: The patient appears in no acute distress, alert, awake, cp non-diaphoretic, non-toxic, well developed, well nourished. 12:55 Head/Face: Normocephalic, atraumatic. cp 12:55 Eyes: Periorbital structures: appear normal, Conjunctiva: normal, no exudate, no injection, Sclera: no appreciated abnormality, Lids and lashes: appear normal, bilaterally. 12:55 ENT: External ear(s): are unremarkable, Nose: is normal, Mouth: Lips: moist, Oral mucosa: pink and intact, moist, Posterior pharynx: is normal, airway is patent, no erythema, no exudate. 12:55 Chest/axilla: Inspection: normal, Palpation: is normal, no crepitus, no tenderness. 12:55 Cardiovascular: Rate: normal, Rhythm: regular, Edema: is not appreciated, JVD: is not appreciated. 12:55 Respiratory: the patient does not display signs of respiratory distress, Respirations: normal, Breath sounds: are clear throughout, no decreased breath sounds, no stridor, no wheezing. 12:55 Abdomen/GI: Inspection: abdomen appears normal, Bowel sounds: active, all quadrants, Palpation: soft, in all quadrants, mild abdominal tenderness, in the left lower quadrant, rebound tenderness, is not appreciated. 12:55 Back: pain, is absent, ROM is normal. 12:55 Skin: no rash present. 12:55 Neuro: Orientation: to person, place \T\ time. Mentation: Vital Signs: 12:36 BP 125 / 82; Pulse 93; Resp 18 S; Temp 99.9(O); Pulse Ox 100% on R/A; Weight 58.97 kg ca1 (R); Height 4 ft. 10 in. (147.32 cm) (R); Pain 0/10; 14:12 BP 143 / 73; Pulse 105; Resp 21 S; Temp 99.9(O); Pulse Ox 95% on R/A; ca1 14:49 BP 131 / 92; Pulse 102; Resp 17 S; Pulse Ox 97% on R/A; ca1 15:14 BP 123 / 85; Pulse 96; Resp 22 S; Pulse Ox 98% on R/A; ca1 16:06 BP 117 / 80; Pulse 93; Resp 15 S; Pulse Ox 97% on R/A; ca1 16:37 BP 116 / 74; Pulse 96; Resp 17 S; Temp 98.9(O); Pulse Ox 96% on R/A; ca1 12:36 Body Mass Index 27.17 (58.97 kg, 147.32 cm) ca1 MDM: 12:37 Patient medically screened. cp 13:00 Differential diagnosis: diverticulitis, Pyelonephritis, Ureterolithiasis, urinary tract cp infection, colitis. 16:07 Data reviewed: vital signs, nurses notes, lab test result(s), radiologic studies, CT cp scan. 16:07 Counseling: I had a detailed discussion with the patient and/or guardian regarding: the cp historical points, exam findings, and any diagnostic results supporting the discharge/admit diagnosis, lab results, radiology results, to return to the emergency department if symptoms worsen or persist or if there are any questions or concerns that arise at home. ED course: VSS. Patient reports pain improved. Will discharge to home for continued monitoring. 01/02 12:35 Order name: Basic Metabolic Panel 01/02 12:35 Order name: CBC with Diff 01/02 12:35 Order name: Creatinine for Radiology 01/02 12:35 Order name: Hepatic Function 01/02 12:35 Order name: Lipase 01/02 12:35 Order name: Urine Microscopic Only 01/02 12:57 Order name: Urine Dipstick--Ancillary (enter results) 01/02 13:04 Order name: CBC with Automated Diff; Complete Time: 13:57 EDWY 01/02 13:58 Interpretation: Normal except: WBC 11.6; RIGOBERTO% 81.2; LYM% 6.5; NEUT A 9.4; MNA 1.4. 01/02 13:18 Order name: Creatinine (Radiology Only); Complete Time: 13:57 EDMS 01/02 13:58 Interpretation: Abnormal. 01/02 13:48 Order name: Urine Dipstick-Ancillary; Complete Time: 13:57 EDWY 01/02 14:09 Order name: Basic Metabolic Panel; Complete Time: 14:36 EDWY 01/02 14:09 Order name: Liver (Hepatic) Function; Complete Time: 14:36 EDWY 01/02 14:37 Interpretation: Normal except: BILIT 1.7; BILID 0.3. 01/02 14:09 Order name: Lipase; Complete Time: 14:36 EDWY 01/02 14:39 Order name: Urine Microscopic Only; Complete Time: 15:55 EDWY 01/02 12:35 Order name: IV Saline Lock; Complete Time: 12:41 01/02 12:35 Order name: Labs collected and sent; Complete Time: 12:41 01/02 12:35 Order name: Urine Dipstick-Ancillary (obtain specimen); Complete Time: 12:57 01/02 12:35 Order name: CT Abd/Pelvis - IV Contrast Only 01/02 13:06 Order name: Labs - recollect needed; Complete Time: 13:27 bd 01/02 15:57 Order name: PO challenge; Complete Time: 15:58 01/02 16:17 Order name: CT EDWY Administered Medications: 12:41 Drug: NS 0.9% 500 ml Route: IV; Rate: bolus; Site: right antecubital; ca1 13:30 Follow up: Urine output 150 ml; Response: No adverse reaction; IV Status: Completed ca1 infusion 14:42 Drug: Potassium Effervescent Tablet 50 mEq Route: PO; ca1 15:19 Follow up: Response: No adverse reaction ca1 16:00 Drug: Cipro 500 mg Route: PO; ca1 16:01 Drug: metroNIDAZOLE 500 mg Volume: 100 ml; Route: IVPB; Infused Over: 30 mins; Site: ca1 right antecubital; 16:05 Drug: Tylenol 650 mg Route: PO; ca1 Disposition: 01/03 07:59 Co-signature as Attending Physician, Sunday Evans MD I agree with the assessment and kdr plan of care. Disposition: 01/02/19 16:08 Discharged to Home. Impression: Diverticulitis of large intestine without perforation or abscess without bleeding. - Condition is Stable. - Discharge Instructions: Clear Liquid Diet, Adult, High-Fiber Diet, Diverticulitis. - Prescriptions for Bentyl 20 mg Oral Tablet - take 1 tablet by ORAL route every 6 hours As needed; 30 tablet. Zofran 4 mg Oral Tablet - take 1 tablet by ORAL route every 12 hours As needed; 20 tablet. Cipro 500 mg Oral Tablet - take 1 tablet by ORAL route every 12 hours for 7 days; 14 tablet. Metronidazole 500 mg Oral Tablet - take 1 tablet by ORAL route every 8 hours; 30 tablet. - Work release form, Medication Reconciliation Form, Thank You Letter, Antibiotic Education, Prescription Opioid Use form. - Follow up: Ugo Narayanan MD; When: 1 week; Reason: Recheck today's complaints. - Problem is new. - Symptoms have improved. - Notes: recommend clear liquid diet for next 2-3 days Signatures: Dispatcher [employer] EDMS Debbie De Leon Kevin, MD MD [facility] Yevgeniy Hayes PA PA cp Mini Gramajo RN RN ca1 Corrections: (The following items were deleted from the chart) 01/02 13:58 13:57 Normal except: WBC 11.6; RIGOBERTO% 81.2; LYM% 6.5; NEUT A 9.4. cp cp 16:39 16:08 01/02/2019 16:08 Discharged to Home. Impression: Diverticulitis of large ca1 intestine without perforation or abscess without bleeding. Condition is Stable. Forms are Medication Reconciliation Form, Thank You Letter, Antibiotic Education, Prescription Opioid Use. Follow up: Ugo Narayanan; When: 1 week; Reason: Recheck today's complaints. Problem is new. Symptoms have improved. cp
[2019-01-02] MEDS ORDERED: TRAMADOL HCL 50 MG TAB ONE (16:25)
[2019-01-02 17:41] VITALS: BP 116/74; TEMP 98.9; O2SAT 96
== END 2019-01-02 16:39 | disposition home or self-care (01) ==
LOC: ER 12:24
DX: K57.32 Diverticulitis of large intestine without perforation or abscess without bleeding (principal); I10 Essential (primary) hypertension
CPT/HCPCS: 36415; 74176; 80048; 80076; 81003; 81015; 83690; 85025; 87086; 87088; 96361; 96374; 99284

== ENCOUNTER 2023-06-28 15:34 | Observation (INO) | payer OTHER ==
--- OUTSIDE RECORDS SUMMARY | 2023-06-28 15:42 | XMS REPORT | Continuity of Care Document ---
Author Name Unknown Address [address] [place] [address] [facility] Address [address] [place] [address] Care Team Providers Care Land Leveler Name Role Phone Unavailable Unavailable Unavailable Encounters Start Date/Time End Date/Time Encounter Type Admission Type Attending Clinicians [facility] Care Department Encounter ID Source 2023-06-12 16:30:18 2023-06-12 16:30:18 Outpatient [facility] [address] 2023-06-07 08:53:27 2023-06-07 08:53:27 Outpatient [facility] [address] 2023-05-29 16:39:22 2023-05-29 16:39:22 Outpatient [facility] [address] 2023-04-20 16:04:33 2023-04-20 16:04:33 Outpatient [facility] [id number] 2023-04-19 15:52:46 2023-04-19 15:52:46 Outpatient [facility] [id number] Results Test Description Test Time Test Comments Results Result Co mments Source TSH, THIRD [id number] 08:15:34* Test Item Value Reference Range Interpretation Comme nts TSH, THIRD GENERATION (test code = 2821) 1.480 UIU/ML 0.400-4.100 COMPREHENSIVE METABOLIC [id number] 08:15:11* Test Item Value Reference Range Interpretation Comme nts GLUCOSE (test code = 2217) 150 MG/DL 70-99 H BUN (test code = 2208) 14 MG/DL 8-23 CREATININE (test code = 2214) 0.67 MG/DL 0.60-1.30 eGFR (2020 CKD-EPI) (test co de = 85598) 98 ML/MIN/1.73 >60 CALC BUN/CREAT (test code = 2234) 21 RATIO 6-28 SODIUM (test code = 223) 138 MEQ/L 133-146 POTASSIUM (test code = 2227) 3.9 MEQ/L 3.5-5.4 CHLORIDE (test code = 2214) 102 MEQ/L 95-107 CARBON DIOXIDE (test code = 2205) 26 MEQ/L 19-31 CALCIUM (test code = 2208) 9.3 MG/DL 8.5-10.5 PROTEIN, TOTAL (test code = 2228) 6.7 G/DL 6.1-8.3 ALBUMIN (test code = 2200) 4.4 G/DL 3.5-5.2 CALC GLOBULIN (test code = 224) 2.3 G/DL 1.9-3.7 CALC A/G RATIO (test code = 2233) 1.9 RATIO 1.0-2.6 BILIRUBIN, TOTAL (test code = 2206) 0.9 MG/DL <=1.2 ALKALINE PHOSPHATASE (test code = 2203) 148 U/L 40-140 H AST (test code = 221) 63 U/L 9-40 H ALT (test code = 2219) 83 U/L 5-40 H LIPID [id number] 08:15:11* Test Item Value Reference Range Interpretation Comme nts CHOLESTEROL (test code = 2210) 208 MG/DL <200 H TRIGLYCERIDES (test code = 223) 148 MG/DL <150 HDL CHOLESTEROL (test code = 0) 66 MG/DL >39 CALC LDL CHOL (test code = 2237) 116 MG/DL <100 H NOTE: CALCULATED LDL IS BASED ON MARIA ALEJANDRA-DUMAS METHOD WHICHINCLUDES ADJUSTABLE TRIGLYCERIDE:VLDL CHOLESTEROL RATIO.THIS FACTOR VARIES BY MEASURED TRIGLYCERIDE AND NON-HDLCHOLESTEROL CONCENTRATIONS WITH INCREASED CALCULATED LDL SEENIN HIGHER TRIGLYCERIDE OR LOWER NON-HDL SPECIMENS. FOR MOREINFORMATION, SEE CLIENT ANNOUNCEMENT AT [email or web address] RATIO LDL/HDL (test code = 2238) 1.76 RATIO <3.22 HEMOGLOBIN [id number] 06:44:42* Test Item Value Reference Range Interpretation Comme nts HEMOGLOBIN A1c (test code = 05156) 5.8 % 4.2-5.6 H [employer] GUIDELINES FOR HGB A1C: PREDIABETES/INCREASED RISK . . . . . . . 5.7-6.4% DIAGNOSIS OF DIABETES . . . . . . . . . >=6.5% WITH CONFIRMATION OR APPROPRIATE SYMPTOMS NOTE: ASSAY MAY BE AFFECTED BY HEMOGLOBINOPATHIES (SICKLE CELL ANEMIA, S-C DISEASE, OTHERS) OR ARTIFICIALLY LOWERED BY DECREASED RED CELL SURVIVAL (HEMOLYTIC ANEMIAS, BLOOD LOSS, ETC.). CONSIDER ALTERNATE TESTING OR LABORATORY CONSULTATION. CBC W/AUTO DIFF WITH [id number] 03:30:54* Test Item Value Reference Range Interpretation Comme nts WBC (test code = 1001) 4.6 K/UL 3.5-11.0 RBC (test code = 1002) 4.30 M/UL 3.80-5.40 HEMOGLOBIN (test code = 1003) 13.2 G/DL 11.5-15.5 HEMATOCRIT (test code = 1004) 37.7 % 34.0-45.0 MCV (test code = 1005) 87.7 fL 80.0-99.0 MCH (test code = 1006) 30.7 PG 25.0-33.0 MCHC (test code = 1007) 35.0 G/DL 31.0-36.0 RDW (test code = 1038) 12.4 % 11.5-15.0 NEUTROPHILS (test code = 1008) 54.1 % LYMPHOCYTES (test code = 1010) 37.4 % MONOCYTES (test code = 1011) 8.1 % EOSINOPHILS (test code = 1012) 0.0 % BASOPHILS (test code = 1013) 0.0 % IMMATURE GRANULOCYTES (test code = 1036) 0.4 % NUCLEATED RBCS (test code = 1065) 0.0 /100 WBC'S See_Comment [Automated Miralupaa ge] The system which generated this result transmitted reference range: 0.0. The reference range was not used to interpret this result as normal/abnormal. PLATELET COUNT (test code = 1015) 165 K/UL 130-400 ABSOLUTE NEUTROPHILS (test code = 1066) 2.46 K/UL 1.50-7.50 ABSOLUTE LYMPHOCYTES (test code = 1067) 1.70 K/UL 1.00-4.00 ABSOLUTE MONOCYTES (test code = 1068) 0.37 K/UL 0.20-1.00 ABSOLUTE EOSINOPHILS (test code = 1040) 0.00 K/UL 0.00-0.50 ABSOLUTE BASOPHILS (test code = 1069) 0.00 K/UL 0.00-0.20 ABS IMMATURE GRANULOCYTES (test code = 1020) 0.02 K/UL 0.00-0.10 ABS NUCLEATED RBCS (test code = 14758) 0.00 K/UL 0.00-0.11
[2023-06-28 17:14] LABS: Absolute Lymphocytes (CBC) 1.9 K/uL (0.7-4.9); Absolute Monocytes 0.4 K/uL (0.1-1.3); Absolute Neutrophil 3.9 K/uL (1.8-8.0); Basophils % 0.2 % (0-1.3); Eosinophils % 0.1 % (0-4.4); Hematocrit 36.2 % (36.0-45.0); Hemoglobin 13.1 g/dL (12.0-15.0); Lymphocytes % 30.8 % (15.3-44.8); MCH 31.5 pg (27.0-35.0); MCHC 36.1 g/dL (32.0-36.0); MCV 87.3 fL (80-100); Monocytes % 6.5 % (3.3-12.3); Neutrophils % 62.4 % (41.7-73.7); Nucleated Red Blood Cells % 0.1 % (0-0); Platelets 168 thou/uL (152-406); RBC Red Blood Cell Count 4.15 M/uL (3.86-4.86); Red Cell Distribution Width 13.1 % (12.1-15.2)
--- NOTE | 2023-06-28 17:16 | RAD REPORT ---
EXAM DESCRIPTION: RAD - Chest Single View - 06/28/2023 4:58 pm CLINICAL HISTORY: CHEST PAIN Chest pain. COMPARISON: <Comparisons> FINDINGS: Portable technique limits examination quality. The lungs are grossly clear. The heart is normal in size. No displaced fractures. IMPRESSION: No acute intrathoracic process suspected.
[2023-06-28 17:37] LABS: Albumin 3.9 g/dL (3.4-5.0); Albumin/Globulin Ratio 1.1 (1.1-1.8); Anion Gap 7.7 mEq/L (5.0-15.0); Bilirubin Direct 0.3 mg/dL (0-0.2); Bilirubin Indirect, Calculated 0.7 mg/dL (0.2-0.8); Globulin 3.4 g/dL (2.3-3.5); Magnesium 2.3 mg/dL (1.6-2.4); Potassium 3.7 mEq/L (3.5-5.1); Protein, Total 7.3 g/dL (6.4-8.2); Troponin High Sensitivity 4.4 pg/mL (<58.9)
[2023-06-28] MEDS ORDERED: NITROGLYCERIN 0.4 MG/TAB SL ONE (17:39)
[2023-06-28] MEDS ORDERED: ASPIRIN 81 MG CHEWABLE TABLET ONE (17:39)
--- NOTE | 2023-06-28 19:17 | ER ---
Nurse's Notes [facility] Name: Diamond Sterling Age: 62 yrs Sex: Female : 1960 Arrival Date: 06/28/2023 Time: 15:34 Bed 6 Private MD: Diagnosis: Chest pain, unspecified Presentation: 06/27 15:58 Chief complaint: Patient states: chest pain X 2 days, worse today , diff breathing , I iw have anxiety. Coronavirus screen: At this time, the client does not indicate any symptoms associated with coronavirus-19. Ebola Screen: Patient negative for fever greater than or equal to 101.5 degrees Fahrenheit, and additional compatible Ebola Virus Disease symptoms Patient denies exposure to infectious person. Patient denies travel to an Ebola-affected area in the 21 days before illness onset. No symptoms or risks identified at this time. Initial Sepsis Screen: Does the patient meet any 2 criteria? No. Patient's initial sepsis screen is negative. Does the patient have a suspected source of infection? No. Patient's initial sepsis screen is negative. Risk Assessment: Do you want to hurt yourself or someone else? Patient reports no desire to harm self or others. Onset of symptoms was June 26, 2023. 15:58 Method Of Arrival: Ambulatory iw 15:58 Acuity: SANIA 3 iw Historical: - Allergies: 15:59 Benadryl; iw - PMHx: 15:59 Anxiety; Diverticulitis; Hypertension; Migraines; iw - Immunization history:: Adult Immunizations unknown. - Family history:: not pertinent. - Social history:: Smoking status: Patient denies any tobacco usage or history of. Screenin:15 [facility] ED Fall Risk Assessment (Adult) History of falling in the last 3 months, ph including since admission No falls in past 3 months (0 pts) Confusion or Disorientation No (0 pts) Intoxicated or Sedated No (0 pts) Impaired Gait No (0 pts) Mobility Assist Device Used No (0 pt) Altered Elimination No (0 pt) Score/Fall Risk Level 0 - 2 = Low Risk Oriented to surroundings, Maintained a safe environment, Assessed \T\ reinforced patient's understanding of fall precautions, Hourly rounding (assess needs \T\ fall precautionary measures) done. Abuse screen: Denies threats or abuse. Denies injuries from another. Nutritional screening: No deficits noted. Tuberculosis screening: No symptoms or risk factors identified. Assessment: 17:13 General: Appears in no apparent distress. comfortable, well groomed, Behavior is ph cooperative, appropriate for age, anxious. Pain: Complains of pain in anterior aspect of right upper chest Pain radiates to right arm. Pain: Complains of pain in headache Pain began 1 day ago. Neuro: Level of Consciousness is awake, alert, obeys commands, Oriented to person, place, time, situation. Cardiovascular: Reports chest pain, nausea, Rhythm is sinus rhythm Chest pain is located in right anterior chest wall radiates to right arm(s). Respiratory: Airway is patent Respiratory effort is even, unlabored, Respiratory pattern is regular, symmetrical. Derm: Skin is pink, warm \T\ dry. Musculoskeletal: Circulation, motion, and sensation intact. Range of motion: intact in all extremities. 19:11 Reassessment: Patient appears in no apparent distress at this time. Patient and/or ph family updated on plan of care and expected duration. Pain level reassessed. Patient is alert, oriented x 3, equal unlabored respirations, skin warm/dry/pink. 19:15 General: Appears in no apparent distress. comfortable, Behavior is calm, cooperative. jw7 Pain: Complains of pain in Head Pain does not radiate. Pain currently is 6 out of 10 on a pain scale. Quality of pain is described as throbbing, Is continuous. Neuro: Level of Consciousness is awake, alert, obeys commands, Oriented to person, place, time, situation. 19:15 Cardiovascular: Heart tones S1 S2 present Capillary refill < 3 seconds Clubbing of nail jw7 beds is absent JVD is absent Patient's skin is warm and dry. Rhythm is sinus rhythm. Respiratory: Airway is patent Trachea midline Respiratory effort is even, unlabored, Respiratory pattern is regular, symmetrical. GI: Abdomen is round non-distended, Bowel sounds present X 4 quads. Abd is soft and non tender X 4 quads. : No deficits noted. No signs and/or symptoms were reported regarding the genitourinary system. EENT: No deficits noted. No signs and/or symptoms were reported regarding the EENT system. Derm: Skin is intact, is healthy with good turgor, Skin is dry, Skin is normal, Skin temperature is warm. Musculoskeletal: Circulation, motion, and sensation intact. Range of motion: intact in all extremities. 20:20 Reassessment: Patient appears in no apparent distress at this time. No changes from jw7 previously documented assessment. Patient and/or family updated on plan of care and expected duration. Pain level reassessed. Patient is alert, oriented x 3, equal unlabored respirations, skin warm/dry/pink. 21:20 Reassessment: Patient appears in no apparent distress at this time. No changes from jw7 previously documented assessment. Patient and/or family updated on plan of care and expected duration. Pain level reassessed. Patient is alert, oriented x 3, equal unlabored respirations, skin warm/dry/pink. Vital Signs: 15:58 BP 169 / 93; Pulse 73; Resp 18; Temp 98.3; Pulse Ox 99% on R/A; iw 17:15 BP 148 / 85; Pulse 72; Resp 18; Pulse Ox 100% on R/A; ph 18:10 BP 151 / 75; Pulse 64; Resp 18; Pulse Ox 100% on R/A; ph 19:11 BP 156 / 76; Pulse 73; Resp 18; Pulse Ox 99% on R/A; ph 20:00 BP 172 / 85; Pulse 71; Resp 16 S; Pulse Ox 96% on R/A; jw7 20:54 BP 161 / 86; Pulse 82; Resp 16; Pulse Ox 99% ; vc1 Vitals: 17:15 Cardiac Rhythm Assessment Sinus rhythm. ph ED Course: 15:37 Patient arrived in ED. ae5 15:40 Que Sylvester MD is Attending Physician. rt 15:59 Triage completed. iw 15:59 Arm band placed on. iw 16:47 Sayra Davenport, RN is Primary Nurse. ph 16:50 Initial lab(s) drawn, by me, sent to lab. Inserted saline lock: 22 gauge in right ph antecubital area, using aseptic technique. Blood collected. Patient maintains SpO2 saturation greater than 95% on room air. 17:00 XRAY Chest (1 view) In Process Unspecified. EDMS 17:16 Patient has correct armband on for positive identification. Bed in low position. Call ph light in reach. Side rails up X 1. Provided Education on: Time for test results, use of call light. Client placed on continuous cardiac and pulse oximetry monitoring. NIBP monitoring applied. kiln operator on. Door closed. Noise minimized. 19:16 Kenji Hernández MD is Hospitalizing Provider. rt 20:21 No provider procedures requiring assistance completed. Patient admitted, IV remains in [facility] place. Administered Medications: 17:42 Drug: Aspirin PO Chewable Tablet 324 mg PO once; 81 mg tablets x 4 Route: PO; ph 18:46 Follow up: Response: No adverse reaction ph 17:42 Drug: Nitroglycerin Sublingual 0.4 mg Sublingual once; every five minute if needed x3 ph Route: Sublingual; 18:46 Follow up: Response: No adverse reaction ph Medication: 17:16 VIS not applicable for this client. ph Outcome: 19:17 Decision to Hospitalize by Provider. rt 20:21 Admitted to Tele accompanied by nurse, via wheelchair, [facility] 20:21 Condition: stable 20:21 Instructed on the need for admit, Demonstrated understanding of instructions, 21:46 Patient left the ED. [facility] Signatures: Dispatcher [employer] EDMS Luisa Carrillo RN RN Sayra Davenport RN RN Estrellita Mclean RN RN vc1 Nuvia Horn RN RN [facility] Que Sylvester MD MD rt Alina Small ae5 Corrections: (The following items were deleted from the chart) 20:37 19:15 Pain: Denies pain. [place] [id number]
--- NOTE | 2023-06-28 19:18 | EDPHYS ---
Physician Documentation [facility] Name: Diamond Sterling Age: 62 yrs Sex: Female : 1960 Arrival Date: 06/28/2023 Time: 15:34 Bed 6 Private MD: ED Physician Que Sylvester HPI: 06/27 16:18 This 62 yrs old Female presents to ER via Ambulatory with complaints of Chest rt Pain > 30 y/o. 16:18 Patient presents to the ED with chest pain rating to the right arm starting about 2 rt days ago. Patient reports it was intermittent, has worsened today. Denies exertional component. Reports having shortness of breath but denies other acute complaints, symptoms are moderate severity, no other aggravating or alleviating factors.. Historical: - Allergies: 15:59 Benadryl; iw - PMHx: 15:59 Anxiety; Diverticulitis; Hypertension; Migraines; iw - Immunization history:: Adult Immunizations unknown. - Family history:: not pertinent. - Social history:: Smoking status: Patient denies any tobacco usage or history of. ROS: 16:18 Constitutional: Negative for fever, chills, and weight loss, Abdomen/GI: Negative for rt abdominal pain, nausea, vomiting, diarrhea, and constipation, MS/Extremity: Negative for injury and deformity, Skin: Negative for injury, rash, and discoloration, Neuro: Negative for headache, weakness, numbness, tingling, and seizure, Psych: Negative for depression, anxiety, suicide ideation, homicidal ideation, and hallucinations, 16:18 Cardiovascular: Positive for chest pain, Negative for edema, 16:18 Respiratory: Positive for shortness of breath, Negative for cough, Exam: 16:18 Constitutional: This is a well developed, well nourished patient who is awake, alert, rt and in no acute distress. Head/Face: Normocephalic, atraumatic. Chest/axilla: Normal chest wall appearance and motion. Nontender with no deformity. No lesions are appreciated. Cardiovascular: Regular rate and rhythm with a normal S1 and S2. No gallops, murmurs, or rubs. Normal PMI, no JVD. No pulse deficits. Respiratory: Lungs have equal breath sounds bilaterally, clear to auscultation and percussion. No rales, rhonchi or wheezes noted. No increased work of breathing, no retractions or nasal flaring. Abdomen/GI: Soft, non-tender, with normal bowel sounds. No distension or tympany. No guarding or rebound. No evidence of tenderness throughout. Skin: Warm, dry with normal turgor. Normal color with no rashes, no lesions, and no evidence of cellulitis. MS/ Extremity: Pulses equal, no cyanosis. Neurovascular intact. Full, normal range of motion. Neuro: Awake and alert, GCS 15, oriented to person, place, time, and situation. Cranial nerves II-XII grossly intact. Motor strength 5/5 in all extremities. Sensory grossly intact. Cerebellar exam normal. Normal gait. 16:18 ECG was reviewed by the Attending Physician. Vital Signs: 15:58 BP 169 / 93; Pulse 73; Resp 18; Temp 98.3; Pulse Ox 99% on R/A; iw 17:15 BP 148 / 85; Pulse 72; Resp 18; Pulse Ox 100% on R/A; ph 18:10 BP 151 / 75; Pulse 64; Resp 18; Pulse Ox 100% on R/A; ph 19:11 BP 156 / 76; Pulse 73; Resp 18; Pulse Ox 99% on R/A; ph 20:00 BP 172 / 85; Pulse 71; Resp 16 S; Pulse Ox 96% on R/A; jw7 20:54 BP 161 / 86; Pulse 82; Resp 16; Pulse Ox 99% ; vc1 MDM: 15:57 Patient medically screened. rt 20:51 Differential diagnosis: Acute coronary syndrome, pneumonia, pneumothorax, rt musculoskeletal pain. HEART Score: History: Moderately Suspicious (1), ECG: Non specific repolarization disturbance / LBTB / PM (1), Age: > 45 and < 65 years (1), Risk Factors: 1 or 2 risk factors (1), Troponin: < or = 1 x Normal Limit (0), Total Score = 4. The patient was given aspirin in the Emergency Department. Data reviewed: vital signs, nurses notes, lab test result(s), EKG, radiologic studies. Consideration of Admission/Observation Patient was admitted/placed on observation. Management of patient was discussed with the following: Hospitalist: Agrees to admit. I considered the following discharge prescriptions or medication management in the emergency department Medications were administered in the Emergency Department. See MAR. Test considered but Not performed: CT: Low suspicion for PE, CT angiogram not indicated. Care significantly affected by the following chronic conditions: Hypertension. Counseling: I had a detailed discussion with the patient and/or guardian regarding the historical points, exam findings, and any diagnostic results supporting the discharge/admit diagnosis, lab results, radiology results, the need for further work-up and treatment in the hospital. Response to treatment: the patient's symptoms have markedly improved after treatment. 06/27 16:02 Order name: Basic Metabolic Panel; Complete Time: 17:38 rt 06/27 16:02 Order name: CBC with Diff; Complete Time: 17:31 rt 06/27 16:02 Order name: LFT's; Complete Time: 17:38 rt 06/27 16:02 Order name: Magnesium; Complete Time: 17:38 rt 06/27 16:02 Order name: Troponin HS; Complete Time: 17:38 rt 06/27 20:08 Order name: Urinalysis w/ reflexes EDAZ 06/27 20:08 Order name: CBC with Automated Diff EDAZ 06/27 20:08 Order name: CBC with Automated Diff EDAZ 06/27 20:08 Order name: Comprehensive Metabolic Panel EDAZ 06/27 20:08 Order name: Comprehensive Metabolic Panel EDAZ 06/27 20:08 Order name: Lipid Profile EDAZ 06/27 20:08 Order name: Lipid Profile EDAZ 06/27 20:08 Order name: Troponin High Sensitivity EDAZ 06/27 20:08 Order name: Troponin High Sensitivity EDAZ 06/27 20:08 Order name: Troponin High Sensitivity EDAZ 06/27 20:08 Order name: Troponin High Sensitivity [facility] 06/27 16:02 Order name: XRAY Chest (1 view); Complete Time: 17:31 rt 06/27 20:10 Order name: Echo with Doppler EDAZ 06/27 16:02 Order name: EKG; Complete Time: 16:02 rt 06/27 20:08 Order name: CONS Physician Consult EDAZ 06/27 16:02 Order name: Cardiac monitoring; Complete Time: 17:13 rt 06/27 16:02 Order name: EKG - Nurse/Tech; Complete Time: 16:25 rt 06/27 16:02 Order name: IV Saline Lock; Complete Time: 17:13 rt 06/27 16:02 Order name: Labs collected and sent; Complete Time: 17:13 rt 06/27 16:02 Order name: O2 Per Protocol; Complete Time: 17: rt 06/27 16:02 Order name: O2 Sat Monitoring; Complete Time: 17:13 rt EC:18 Rate is 73 beats/min. Rhythm is regular, Normal Sinus Rhythm with No ectopy. QRS [place] rt is Normal. IA interval is normal. QT interval is normal. No Q waves. Clinical impression: NSR w/ Non-specific ST/T Changes. Administered Medications: 17:42 Drug: Aspirin PO Chewable Tablet 324 mg PO once; 81 mg tablets x 4 Route: PO; ph 18:46 Follow up: Response: No adverse reaction ph 17:42 Drug: Nitroglycerin Sublingual 0.4 mg Sublingual once; every five minute if needed x3 ph Route: Sublingual; 18:46 Follow up: Response: No adverse reaction ph Disposition Summary: 06/28/23 19:17 Hospitalization Ordered Notes: Hospitalization Status: Observation rt Provider: Kenji Hernández rt Location: Telemetry/MedSurg (observation) rt Condition: Stable rt Problem: new rt Symptoms: have improved rt Bed/Room Type: Standard rt Room Assignment: 407(06/28/23 20:14) ty Diagnosis - Chest pain, unspecified rt Forms: - Medication Reconciliation Form rt - SBAR form rt - Leadership Thank You Letter rt Signatures: Dispatcher [employer] Luisa Mojica, RN YAMILETH Sayra Davenport RN RN ph [place], Ryan, MD MD rt Sarabjit Gallagher ty Corrections: (The following items were deleted from the chart) 20: 19:17 rt ty
[2023-06-28] MEDS ORDERED: ACETAMINOPHEN 325 MG TABLET PO PRN (19:59)
[2023-06-28] MEDS ORDERED: ONDANSETRON 4 MG/2 ML VIAL IV PRN (19:59)
--- NOTE | 2023-06-28 19:59 | P.HP ---
Certification for Inpatient Patient admitted to: Observation With expected LOS: <2 Midnights Practitioner: I am a practitioner with admitting privileges, knowledge of patient current condition, hospital course, and medical plan of care. Services: Services provided to patient in accordance with Admission requirements found in Title 42 Section 412.3 of the Code of Federal Regulations Patient History Date of Service: 06/28/23 Reason for admission: Chest Pain History of Present Illness: 62 yrs old Female with past medical history of anxiety, migraine, hypertension, history of diverticulosis who presents to ER with chest pain which has been going on for the last 2 days and has been progressively getting worse. Pain is intermittent, retrosternal location, sharp, nonradiating, not associated with diaphoresis. No nausea vomiting or diarrhea. Denies any shortness of breath. No change with exertion or movements. 6 out of 10 in severity at this time which is better after having nitroglycerin. No aggravating or alleviating factors. As the pain was getting worse she was brought to ER for further management. Patient was assessed in the ER and was admitted for closer monitoring and to rule out ACS Allergies diphenhydramine [From Benadryl] Allergy (Unverified 01/01/17 18:55) Unknown Home medications list reviewed: Yes - Past Medical/Surgical History Past Medical History: Reviewed- Non-Contributory -: Diverticulosis -: Anxiety -: Hypertension Past Surgical History: Reviewed- Non-Contributory - Family History Family History: Reviewed- Non-Contributory - Social History Smoking Status: Never smoker Review of Systems 10-point ROS is otherwise unremarkable Physical Examination - Vital Signs Temperature: 98.4 F Blood Pressure: 146/84 Pulse: 76 Respirations: 18 Pulse Ox (%): 96 - Physical Exam General: Alert, In no apparent distress, Oriented x3, Cooperative HEENT: Atraumatic, Normocephalic Neck: Supple, 2+ carotid pulse no bruit, JVD not distended Respiratory: Clear to auscultation bilaterally, Normal air movement Cardiovascular: Regular rate/rhythm, Normal S1 S2, No gallops, No rubs Capillary refill: <2 Seconds Gastrointestinal: Soft and benign, No tenderness, No guarding Musculoskeletal: No clubbing, No swelling Integumentary: No rashes, No breakdown Neurological: Normal speech, Normal strength at 5/5 x4 extr, Cranial nerves 3-12 intact, Normal reflexes 2+ Lymphatics: No axilla or inguinal lymphadenopathy - Studies Laboratory Data (last 24 hrs) 06/28/23 06/28/23 16:55 16:55 WBC 6.30 Hgb 13.1 Hct 36.2 Plt Count 168 Sodium 140 Potassium 3.7 BUN 12 Creatinine 0.68 Glucose 105 Magnesium 2.3 Total Bilirubin 1.0 AST 62 H ALT 103 H Alkaline Phosphatase 129 H Assessment and Plan - Problems (Diagnosis) (1) Unstable angina Current Visit: Yes Status: Acute Plan: Will trend cardiac enzymes Will monitor telemetry Started on aspirin and statin EKG did not show any acute changes sinus ST-T suggestive of ischemia Patient denies any chest pain Will get an echocardiogram Cardiology consult Will get a D-dimer Will get a CT of the chest if D-dimer is elevated (2) Hypertension Current Visit: Yes Status: Chronic Plan: Continue home medications and titrate as needed Hydralazine as needed (3) Anxiety Current Visit: Yes Status: Chronic Plan: Continue home medications (4) Elevated LFTs Current Visit: Yes Status: Acute Plan: Elevated LFTs found Will monitor LFTs in the morning Will get an ultrasound of the abdomen Denies any abdominal pain Discharge Plan: Home Plan to discharge in: 24 Hours - Advance Directives Does patient have a Living Will: No Does patient have a Durable POA for Healthcare: No - Code Status/Comfort Care Code Status: Full Code Time Spent Managing Pts Care (In Minutes): 56
[2023-06-28] MEDS: ASPIRIN EC 81 MG TAB PO SCH (20:07)
[2023-06-28] MEDS: ATORVASTATIN 40 MG TAB PO SCH (21:55)
[2023-06-28] MEDS: HYDROCODONE/APAP 5/325 MG TAB PO PRN (21:55)
--- NOTE | 2023-06-28 22:30 | RAD REPORT ---
EXAM DESCRIPTION: US - Abdomen Exam Limited - 06/28/2023 10:22 pm CLINICAL HISTORY: elevated LFT COMPARISON: <Comparisons> FINDINGS: The gallbladder is surgically absent. The common bile duct does not appear dilated. The liver demonstrates mild fatty liver. IMPRESSION: Status post cholecystectomy without biliary dilatation. Fatty liver.
[2023-06-28 22:40] VITALS: BMI 29.2
[2023-06-29 01:27] LABS: Specific Gravity 1.006 (1.005-1.030); Urine Bilirubin NEGATIVE (Negative); Urine Blood Negative (Negative); Urine Clarity Clear (Clear); Urine Color Colorless (Yellow); Urine Glucose 2+ (Negative); Urine Ketones NEGATIVE (Negative); Urine Microscopic Reflex YN NO UMIC; Urine Nitrite NEGATIVE (Negative); Urine Protein NEGATIVE (Negative); Urine Urobilinogen Normal (Normal); Urine pH 6.5 (5.0-7.0)
[2023-06-29 04:11] LABS: Absolute Lymphocytes (CBC) 1.9 K/uL (0.7-4.9); Absolute Monocytes 0.4 K/uL (0.1-1.3); Absolute Neutrophil 2.6 K/uL (1.8-8.0); Basophils % 0.3 % (0-1.3); Eosinophils % 0.3 % (0-4.4); Hematocrit 36.2 % (36.0-45.0); Hemoglobin 12.9 g/dL (12.0-15.0); Lymphocytes % 38.8 % (15.3-44.8); MCH 31.1 pg (27.0-35.0); MCHC 35.6 g/dL (32.0-36.0); MCV 87.4 fL (80-100); MPV 8.1 fL (7.6-11.3); Neutrophils % 52.6 % (41.7-73.7); Nucleated Red Blood Cells % 0.1 % (0-0); Platelets 156 thou/uL (152-406); RBC Red Blood Cell Count 4.14 M/uL (3.86-4.86); Red Cell Distribution Width 13.3 % (12.1-15.2)
[2023-06-29 04:35] LABS: Albumin 3.4 g/dL (3.4-5.0); Albumin/Globulin Ratio 1.1 (1.1-1.8); Anion Gap 8.5 mEq/L (5.0-15.0); Bilirubin Total 0.9 mg/dL (0.2-1.0); Potassium 3.5 mEq/L (3.5-5.1); Protein, Total 6.4 g/dL (6.4-8.2)
[2023-06-29] MEDS: ENOXAPARIN 40 MG/0.4 ML SQ SCH (09:00)
[2023-06-29] MEDS: POTASSIUM CL SA 10 MEQ TAB PO ONE (10:01)
--- NOTE | 2023-06-29 10:44 | P.PN ---
Date of Service: 06/29/23 Subjective: ROS: 10 point ROS as noted above, otherwise negative Physical Exam: GEN: Alert, oriented, NAD HEENT: Normal conjunctiva, sclera anicteric CV: Regular rate and rhythm, no edema Pulm: Nonlabored respirations on room air, clear bilaterally ABD: Soft, nontender, nondistended Neuro: Normal speech, normal affect vitals reviewed Problem List: Unstable Angina / Chest pain Elevated LFTs Fatty liver Hypertension Anxiety Unstable Angina / Chest pain troponins negative x3. monitor on telemetry Cardiology consulted continue aspirin, statin. PRN analgesics Elevated LFTs Fatty liver Abdominal u/s (06/27): Fatty liver. s/p cholecystectomy without biliary dilation trend LFTs improving Hypertension Anxiety confirm home meds, restart as appropriate VTE: Lovenox Code: Full Dispo: Home Pending cardiac recs
[2023-06-29] MEDS ORDERED: NA CHLORIDE 0.9% 500 ML ONE (14:38)
[2023-06-29] MEDS ORDERED: HEPA 1000U/500MLS 2,000 UNIT/1,000 ML BAG IV ONE (14:56)
[2023-06-29] MEDS ORDERED: LIDOCAINE 1% 20 ML MDV ONE (14:56)
[2023-06-29] MEDS ORDERED: VERAPAMIL HCL 10 MG/4 ML VIAL IV ONE (14:56)
[2023-06-29] MEDS ORDERED: FENTANYL CITR 100 MCG/2 ML ONE (14:56)
[2023-06-29] MEDS ORDERED: MIDAZOLAM HCL 2 MG/2 ML INJ ONE (14:57)
[2023-06-29] MEDS ORDERED: HEPARIN 10,000 UNIT/10 ML VIAL IV ONE (14:57)
[2023-06-29] MEDS ORDERED: ATROPINE SULF 1 MG/10 ML SYR IV ONE (14:57)
[2023-06-29] MEDS ORDERED: HEPARIN 5000 UNIT/ML 1 ML VIAL ONE (14:57)
[2023-06-29] MEDS ORDERED: TICAGRELOR 90 MG TABLET PO ONE (14:57)
[2023-06-29] MEDS ORDERED: ASPIRIN 325 MG TAB ONE (14:58)
[2023-06-29] MEDS ORDERED: CLOPIDOGREL 75 MG TABLET ONE (14:58)
--- NOTE | 2023-06-29 17:23 | EKG ---
Test Date: 2023-06-28 Test Time: 15:55:41 Industrial Cook: CESAR MEASUREMENT RESULTS: Intervals: Rate: 73 CO: 142 QRSD: 84 QT: 416 QTc: 458 [place]: P: 42 CO: 142 QRS: -1 T: 16 INTERPRETIVE STATEMENTS: Normal sinus rhythm Possible Anterior infarct, age undetermined Abnormal ECG Compared to ECG 01/01/2017 16:36:56 Myocardial infarct finding now present Left ventricular hypertrophy no longer present Electronically Signed On 06-29-23 17:20:23 CDT by Stephen Garzon
--- NOTE | 2023-06-29 17:31 | P.DS ---
Admission Date: 06/28/23 Discharge Date: 06/29/23 Disposition: ROUTINE DISCHARGE Discharge Condition: GOOD Reason for Admission: Chest Pain Consultations: Cardiology - Dr. Garzon Brief History of Present Illness: 62yo F, PMH: anxiety, migraine, hypertension, history of diverticulosis who presented to ER with chest pain which has been going on for the last 2 days and has been progressively getting worse. Pain is intermittent, retrosternal location, sharp, nonradiating, not associated with diaphoresis. No nausea vomiting or diarrhea. Denies any shortness of breath. No change with exertion or movements. 6 out of 10 in severity at this time which is better after having nitroglycerin. No aggravating or alleviating factors. As the pain was getting worse she was brought to ER for further management. Patient was assessed in the ER and was admitted for closer monitoring and to rule out ACS Hospital Course: Problem List: Chest pain Elevated LFTs , secondary to Fatty liver Hypertension Anxiety Physician Discharge Instructions: Patient presented with worsening chest pain over the past 2-3 days radiating to her right shoulder. Troponins were negative x4. D-dimer was negative. CXR without any acute findings. Her pain resolved after given nitro in the ER. Cardiology was consulted and performed cardiac catheterization, which was noted to be normal. No further intervention warranted. She was doing well post-operatively, and deemed stable for discharge home. Uncertain what the cause of this pain was. She did report lifting a heavy object the day before this started, but nothing was memorable regarding any pulled muscles or significant straining. This could possibly be musculoskeletal in etiology. Incidentally liver function tests were noted to be mildly elevated in the ER, and recheck had improved to near normal levels. (AST: 46, ALT:82) Liver U/S noted fatty liver. Recommend repeat liver function tests in 1-2 weeks to monitor. Medications: no change in medications. Continue home medications as previously prescribed. Follow up: PCP 3-5 days Physical Exam: GEN: Alert, oriented, NAD HEENT: Normal conjunctiva, sclera anicteric CV: Regular rate and rhythm, no edema Pulm: Nonlabored respirations on room air, clear bilaterally ABD: Soft, nontender, nondistended Neuro: Normal speech, normal affect vitals reviewed Vital Signs/Physical Exam: Temp Pulse Resp BP Pulse Ox 98.1 F 64 16 131/69 99 06/29/23 12:00 06/29/23 17:10 06/29/23 17:10 06/29/23 17:10 06/29/23 12:00 Laboratory Data at Discharge: WBC 5.00 thou/uL (4.3-10.9) 06/29/23 03:14 Hgb 12.9 g/dL (12.0-15.0) 06/29/23 03:14 Hct 36.2 % (36.0-45.0) 06/29/23 03:14 Plt Count 156 thou/uL (152-406) 06/29/23 03:14 Sodium 142 mEq/L (136-145) 06/29/23 03:14 Potassium 3.5 mEq/L (3.5-5.1) 06/29/23 03:14 BUN 10 mg/dL (7-18) 06/29/23 03:14 Creatinine 0.61 mg/dL (0.55-1.02) 06/29/23 03:14 Glucose 111 mg/dL (74-106) H 06/29/23 03:14 Magnesium 2.3 mg/dL (1.6-2.4) 06/28/23 16:55 Total Bilirubin 0.9 mg/dL (0.2-1.0) 06/29/23 03:14 AST 46 U/L (15-37) H 06/29/23 03:14 ALT 82 U/L (13-56) H 06/29/23 03:14 Alkaline Phosphatase 113 U/L (45-117) 06/29/23 03:14 Triglycerides 119 mg/dL (<150) 06/29/23 03:14 Cholesterol 183 mg/dL (<200) 06/29/23 03:14 HDL Cholesterol 64 mg/dL (40-60) H 06/29/23 03:14 Cholesterol/HDL Ratio 2.86 06/29/23 03:14 Home Medications: Buspirone HCl [Buspar] 1 tab PO DAILY 06/29/23 Celecoxib [Celebrex] 1 tab PO DAILY 06/29/23 LORazepam [Ativan*] 1 tab PO BID 06/29/23 Lisinopril/Hydrochlorothiazide [Lisinopril-Hctz 20-25 mg Tab] 1 tab PO DAILY 06/29/23 Metoprolol Succinate [Toprol Xl*] 1 tab PO DAILY 06/29/23 Physician Discharge Instructions: Physician Discharge Instructions: Patient presented with worsening chest pain over the past 2-3 days radiating to her right shoulder. Troponins were negative x4. D-dimer was negative. CXR without any acute findings. Her pain resolved after given nitro in the ER. Cardiology was consulted and performed cardiac catheterization, which was noted to be normal. No further intervention warranted. She was doing well post-operatively, and deemed stable for discharge home. Uncertain what the cause of this pain was. She did report lifting a heavy object the day before this started, but nothing was memorable regarding any pulled muscles or significant straining. This could possibly be musculoskeletal in etiology. Incidentally liver function tests were noted to be mildly elevated in the ER, and recheck had improved to near normal levels. (AST: 46, ALT:82) Liver U/S noted fatty liver. Recommend repeat liver function tests in 1-2 weeks to monitor. Medications: no change in medications. Continue home medications as previously prescribed. Follow up: PCP 3-5 days Followup: NONE,NONE [Primary Care Provider] - Time spent managing pt's care (in minutes): 45
[2023-06-29 18:12] VITALS: O2SAT 95
--- NOTE | 2023-06-29 18:54 | OP ---
Date of Procedure: 06/29/2023 Surgeon: CHOLO FAM Procedures Performed: 1.Selective coronary angiogram. 2.Left heart catheterization. Indication: Unstable angina. Access: Right radial artery 6-Finnish closed with TR band. Complications: None. Bleeding: Less than 50 mL. Anesthesia: Total sedation time was 30 minutes, used fentanyl and Versed. Description Of Procedure: After risks, benefits, alternatives were explained, patient agreed to proc edure and signed informed consent. Patient was brought into the cardiac catheterization laboratory, prepped and draped in the usual sterile fashion, and then I accessed right radial artery using pediat alona micropuncture kit, placed a 6-Finnish Slender sheath and took 5-Finnish Manquin 4.0 catheter into the aortic root over a J-wire across the aortic valve. Measured the LVEDP. Pullback did not record any gradient. Then I engaged the RCA, took standard views, then exchanged for 6-Finnish JL3 catheter, en gaged the left main, took standard views and then I removed the catheter and the sheath and placed TR band with good hemostasis. Findings: 1.Left main; large and normal. 2.LAD; large and normal. Normal diagonal branches. 3.Left circumflex; it is normal with normal OM branches. 4.RCA; it is dominant and normal. 5.Elevated LVEDP at 17 mmHg. Conclusion: 1.Normal coronary arteries. 2.Elevated LVEDP. Recommendation: Medical management. /ZARA Voice ID: [id number] Report ID: [id number]
--- NOTE | 2023-06-29 19:39 | CON ---
Date of Consultation: 06/29/2023 Reason For Consultation: Chest pain. History Of Present Illness: A 62-year-old female, history of hypertension, anxiety disorder, present ed to the emergency room for chest pain, retrosternal, radiates to left arm, started 2 days ago and p rogressively is getting worse and pain radiates to her left shoulder and left upper extremity. Denjason s diaphoresis, nausea, vomiting. It has become more frequent over the past 2 days and she feels shor t of breath with it and it can be at rest or with exertion. Past Medical History: Hypertension, anxiety disorder, diverticulosis. Medications: Refer reconciliation sheet for detailed list. Medications are reviewed. Allergies: DIPHENHYDRAMINE. Family History: No premature coronary artery disease or cancer. Social History: She does not smoke or drink. Does not use any drugs. Review of Systems: All systems reviewed are negative except mentioned in HPI. Physical Examination: Vital Signs: Reviewed. Head and Neck: Pupils are equal, reactive to light. Intact eye movements. No JVD. No cervical lym phadenopathy. Neck is supple. Thyroid is not enlarged. Lungs: Clear to auscultation bilaterally. No rhonchi, rales, or crackles. No accessory muscle use. Heart: Regular rate and rhythm. No extra sounds. Abdomen: Soft, nontender. Bowel sounds positive. No organomegaly. No masses or hernia. No rigidi ty or rebound. Extremities: No edema, clubbing, cyanosis. Intact pulses. Skin: No rash or nodules. Neurologic: Alert, awake, oriented x3. No acute focal deficits appreciated. Lymph Nodes: No cervical or axillary lymphadenopathy. Investigations: Cardiac enzymes x4 are negative. BUN 10, creatinine 0.61. Hemoglobin is 12.9. Assessment/recommendation: 1.Chest pain, recent onset 2 days ago and more frequent and progressive, suggestive of unstable zev na. Cardiac enzymes are negative. She is n.p.o. Plan for coronary angiogram today. Continue baby aspirin. 2.Dyslipidemia. Continue Lipitor 40 mg q.h.s. 3.Hypertension. Blood pressure is controlled. Continue home medications. SR/MODL Voice ID: [id number] Report ID: [id number]
[2023-06-29 20:21] VITALS: BP 113/67; TEMP 97.4
--- NOTE | 2023-07-02 07:07 | ECHO ---
HEIGHT: 4 ft 10 in WEIGHT: 140 lb 0 oz DATE OF STUDY: 06/29/[address]: Chaz Hernández DO 2-DIMENSIONAL: YES M.MODE: YES DOPPLER: YES COLOR FLOW: YES TDS: PORTABLE: YES DEFINITY: BUBBLE STUDY: DIAGNOSIS: CHEST PAIN CARDIAC HISTORY: CATHERIZATION: NO SURGERY: NO PROSTHETIC VALVE: NO PACEMAKER: NO MEASUREMENTS (cm) DIASTOLIC (NORMALS) SYSTOLIC (NORMALS) IVSd 1.0 (0.6-1.2) LA Diam 2.7 (1.9-4.0) LVEF 54% LVIDd 3.2 (3.5-5.7) LVIDs 2.3 (2.0-3.5) %FS 27% LVPWd 1.1 (0.6-1.2) Ao Diam 2.5 (2.0-3.7) 2 DIMENSIONAL ASSESSMENT: RIGHT ATRIUM: NORMAL LEFT ATRIUM: NORMAL RIGHT VENTRICLE: NORMAL LEFT VENTRICLE: NORMAL TRICUSPID VALVE: MILD TRICUSPID REGURGITATION MITRAL VALVE: MILD MITRAL REGURGITATION PULMONIC VALVE: MILD PULMONIC INSUFFICIENCY AORTIC VALVE: NORMAL PERICARDIAL EFFUSION: NONE AORTIC ROOT: NORMAL LEFT VENTRICULAR WALL MOTION: NORMAL DOPPLER/COLOR FLOW: SEE BELOW COMMENTS: 1. NORMAL LEFT VENTRICULAR EJECTION FRACTION 55-60% WITH NORMAL WALL MOTION 2. MILD MITRAL REGURGITATION 3. MILD TRICUSPID REGURGITATION 4. GRADE I DIASTOLIC DYSFUNCTION TECHNOLOGIST: MINAL GANDHI
== END 2023-06-29 20:25 | disposition home or self-care (01) ==
LOC: ER 15:34 → ERHOLD 19:59 → 4TH 21:32
PROVIDERS: ADMIT Family Medicine; ATTEND Hospitalist
PROC: 4A023N7 Measurement of Cardiac Sampling and Pressure, Left Heart, Percutaneous Approach (ICD-10-PCS; principal; 2023-06-29)
PROC: B2011ZZ Plain Radiography of Multiple Coronary Arteries using Low Osmolar Contrast (ICD-10-PCS; 2023-06-29)
DX: I20.0 Unstable angina (principal); I10 Essential (primary) hypertension; F41.9 Anxiety disorder, unspecified; K76.0 Fatty (change of) liver, not elsewhere classified; R79.89 Other specified abnormal findings of blood chemistry; K57.90 Diverticulosis of intestine, part unspecified, without perforation or abscess without bleeding; G43.909 Migraine, unspecified, not intractable, without status migrainosus; Z88.8 Allergy status to other drugs, medicaments and biological substances
CPT/HCPCS: 93005; 93306; 85025 ×2; 80048; 36415 ×2; 83735; 80061; 85379; 80076; 81003; 84484 ×4; 80053; 71045; 93458; 76937; 76705; 99285; C1893; Q9966; J1644; J2001; J2250; J3010; J7040; G0378 ×4; 99152; J0461; J1650

== ENCOUNTER 2025-01-04 14:32 | Emergency (ER) | payer OTHER ==
--- OUTSIDE RECORDS SUMMARY | 2025-01-04 14:36 | XMS REPORT | Continuity of Care Document ---
Author Name Unknown Address [address] [facility] [address] [place] [address] [facility] Address [address] [address] [address] [place] [address] Care Team Providers Care Survey Analyst Name Role Phone Randi Mckee Primary Care Physician [phone] MANUEL MACIAS Attending Clinician Unavailable HAIDER ALEJANDRO Attending Clinician KIRSTIE Alford Attending Clinician Unavailable KASSIDY BAXTER Attending Clinician Unavailable Payers Payer Name Policy Type Policy Number Effective Date Expirati on Date Source [facility] PPO/POS [id number] 2018 00:00:00 Allergies, Adverse Reactions, Alerts Allergy Name Allergy Type Status Severity Reaction(s) Onset Date Inactive Date Treating Clinician Comments Source BUSPIRON E DRUG INGREDI Active Other-Cmnt 3- 00:00: 00 [facility] ESCITALO PRAM OXALATE DRUG INGREDI Active Swelling 3 00:00: 00 [facility] DIPHENHY DRAMINE HCL DRUG INGREDI Active ITCHING 2- 00:00: 00 [facility] Medications Ordered Medication Name Filled Medication Name Start Date Stop Date Current Medication? Ordering Clinician Indication Dosage Frequency Signature (SIG) Comments Components Source cyclobenzap rine 5 mg tablet 11-01 00:00: 00 Yes 1mg Carltonmasoud Osuna lisinopril 20 mg-hydrochl orothiazide 25 mg tablet 10-14 00:00: 00 Yes mg Carlton Osuna metoprolol succinate ER 25 mg tablet,exte nded release 24 hr 10-14 00:00: 00 Yes mg Carlton Osuna buspirone 10 mg tablet 10-14 00:00: 00 Yes 1mg Carlton Osuna sertraline 50 mg tablet 10-14 00:00: 00 Yes 1mg Carlton Osuna cyclobenzap rine 5 mg tablet 10-14 00:00: 00 Yes 1mg Carlton Osuna diclofenac 1 % topical gel 10-07 00:00: 00 Yes % Carlton Osuna tizanidine 4 mg capsule 10-07 00:00: 00 Yes 1mg Carlton Osuna buspirone 10 mg tablet 10-02 00:00: 00 Yes 1mg Carlton Osuna sertraline 50 mg tablet 10-02 00:00: 00 Yes 1mg Carlton Osuna mupirocin 2 % topical ointment 08-20 00:00: 00 Yes 1% Carlton Osuna lorazepam 0.5 mg tablet 08-20 00:00: 00 Yes 1mg Carlton Osuna buspirone 10 mg tablet 08-20 00:00: 00 Yes 1mg Carlton Osuna amoxicillin 500 mg capsule 08-20 00:00: 00 Yes 1mg Carlton Osuna celecoxib 400 mg capsule 08-20 00:00: 00 Yes 1mg Carlton Osuna sertraline 100 mg tablet 07-23 00:00: 00 Yes mg Carlton Osuna metoprolol succinate ER 25 mg tablet,exte nded release 24 hr 07-17 00:00: 00 Yes mg Carlton Osuna lisinopril 20 mg-hydrochl orothiazide 25 mg tablet 07-17 00:00: 00 Yes mg Carlton Osuna TAKE 10 ML EVERY 6 HOURS NEEDED. 06-07 00:00: 00 08-28 00:00 :00 No [id number] Carlton Osuna TAKE ONE TABLET BY MOUTH ONCE A DAY 04-18 00:00: 00 Yes 25 Carlton Osuna 1 tablet by mouth when needed, once a day 04-18 00:00: 00 Yes 100 Carlton Osuna take 1 tablet by mouth once a day 04-18 00:00: 00 Yes 10 Cralton Osuna take 1 tablet by mouth daily 04-18 00:00: 00 Yes 2024 Carlton Osuna TAKE 1 CAPSULE DAILY WITH FOOD. 04-18 00:00: 00 08-28 00:00 :00 No 400 Carlton Osuna diclofenac 1 % topical gel 04-18 00:00: 00 08-28 00:00 :00 No 1% Carlton Osuna Immunizations Ordered Immunization Name Filled Immunization Name Date Status Comments Source Tdap Tdap 2023-08-21 00:00:00 Completed Carlton Osuna Tdap Tdap 2023-08-21 00:00:00 Completed Carlton Osuna Vital Signs Vital Name Observation Time Observation Value Comments S ource BP Systolic 2024-01-09 10:48:00 179 mm[Hg] Step hen Hang Osuna BP Diastolic 2024-01-09 10:48:00 96 mm[Hg] Yair phen F Enrrique Weight Measured 2024-01-09 10:48:00 135.80 pounds Carlton Osuna Height Measured 2024-01-09 10:48:00 57.13 inches Carlton Osuna Body Temperature 2024-01-09 10:48:00 97.80 degrees Carlton Osuna Heart Rate 2024-01-09 10:48:00 63.00 /min Jocelin en F Enrrique Respiratory Rate 2024-01-09 10:48:00 18.00 /min Carlton Hang Osuna BP Systolic 2023-11-02 09:58:00 147 mm[Hg] Step hen F Enrrique BP Diastolic 2023-11-02 09:58:00 82 mm[Hg] Yair phen F Enrrique Weight Measured 2023-11-02 09:58:00 136.60 pounds Carlton Hang Osuna Height Measured 2023-11-02 09:58:00 57.13 inches Carlton Hang Osuna Body Temperature 2023-11-02 09:58:00 97.20 degrees Carlton Hang Enrrique Heart Rate 2023-11-02 09:58:00 73.00 /min Jocelin en F Enrrique Respiratory Rate 2023-11-02 09:58:00 19.00 /min Carlton F Enrrique BP Systolic 2023-10-15 15:39:00 123 mm[Hg] Step hen F Enrrique BP Diastolic 2023-10-15 15:39:00 78 mm[Hg] Yair phen F Enrrique Weight Measured 2023-10-15 15:39:00 135.40 pounds Carlton F Enrrique Height Measured 2023-10-15 15:39:00 57.13 inches Carlton F Enrrique Body Temperature 2023-10-15 15:39:00 97.50 degrees Carlton F Enrrique Heart Rate 2023-10-15 15:39:00 71.00 /min Jocelin en F Enrrique Respiratory Rate 2023-10-15 15:39:00 Carlton F Enrrique BP Systolic 2023-10-12 15:36:00 144 mm[Hg] Step hen F Enrrique BP Diastolic 2023-10-12 15:36:00 80 mm[Hg] Yair phen F Enrrique Weight Measured 2023-10-12 15:36:00 136.00 pounds Carlton F Enrrique Height Measured 2023-10-12 15:36:00 57.13 inches Carlton F Enrrique Body Temperature 2023-10-12 15:36:00 97.90 degrees Carlton F Enrrique Heart Rate 2023-10-12 15:36:00 70.00 /min Jocelin en F Enrrique Respiratory Rate 2023-10-12 15:36:00 Carlton F Enrrique BP Systolic 2023-10-08 17:44:00 156 mm[Hg] Step hen F Enrrique BP Diastolic 2023-10-08 17:44:00 93 mm[Hg] Yair phen F Enrrique Weight Measured 2023-10-08 17:44:00 138.80 pounds Carlton F Enrrique Height Measured 2023-10-08 17:44:00 57.13 inches Carlton F Enrrique Body Temperature 2023-10-08 17:44:00 98.20 degrees Carlton F Enrrique Heart Rate 2023-10-08 17:44:00 80.00 /min Jocelin en F Enrrique Respiratory Rate 2023-10-08 17:44:00 16.00 /min Carlton F Enrrique BP Systolic 2023-10-03 16:47:00 171 mm[Hg] Step hen F Enrrique BP Diastolic 2023-10-03 16:47:00 82 mm[Hg] Yair phen F Enrrique Weight Measured 2023-10-03 16:47:00 141.80 pounds Carlton F Enrrique Height Measured 2023-10-03 16:47:00 57.13 inches Carlton F Enrrique Body Temperature 2023-10-03 16:47:00 Carlton F Enrrique Heart Rate 2023-10-03 16:47:00 81.00 /min Jocelin en F Enrrique Respiratory Rate 2023-10-03 16:47:00 19.00 /min Carlton F Enrrique BP Systolic 2023-08-29 14:50:00 130 mm[Hg] Step hen F Enrrique BP Diastolic 2023-08-29 14:50:00 71 mm[Hg] Yair phen F Enrrique Weight Measured 2023-08-29 14:50:00 138.20 pounds Carlton F Enrrique Height Measured 2023-08-29 14:50:00 57.13 inches Carlton F Enrrique Body Temperature 2023-08-29 14:50:00 97.90 degrees Carlton F Enrrique Heart Rate 2023-08-29 14:50:00 78.00 /min Jocelin en F Enrrique Respiratory Rate 2023-08-29 14:50:00 18.00 /min Carlton F Enrrique BP Systolic 2023-08-21 16:03:00 169 mm[Hg] Step hen F Enrrique BP Diastolic 2023-08-21 16:03:00 92 mm[Hg] Yair phen F Enrrique Weight Measured 2023-08-21 16:03:00 139.00 pounds Carlton F Enrrique Height Measured 2023-08-21 16:03:00 57.13 inches Carlton F Enrrique Body Temperature 2023-08-21 16:03:00 98.40 degrees Carlton F Enrrique Heart Rate 2023-08-21 16:03:00 73.00 /min Jocelin en F Enrrique Respiratory Rate 2023-08-21 16:03:00 18.00 /min Carlton F Enrrique BP Systolic 2023-07-02 15:49:00 147 mm[Hg] Step hen F Enrrique BP Diastolic 2023-07-02 15:49:00 88 mm[Hg] Yair phen F Enrrique Weight Measured 2023-07-02 15:49:00 140.60 pounds Carlton F Enrrique Height Measured 2023-07-02 15:49:00 57.13 inches Carlton F Enrrique Body Temperature 2023-07-02 15:49:00 98.20 degrees Carlton F Enrrique Heart Rate 2023-07-02 15:49:00 75.00 /min Jocelin en F Enrrique Respiratory Rate 2023-07-02 15:49:00 19.00 /min Carlton F Enrrique BP Systolic 2023-06-07 09:01:00 179 mm[Hg] Step hen F Enrrique BP Diastolic 2023-06-07 09:01:00 95 mm[Hg] Yair phen F Enrrique Weight Measured 2023-06-07 09:01:00 141.40 pounds Carlton F Enrrique Height Measured 2023-06-07 09:01:00 57.13 inches Carlton F Enrrique Body Temperature 2023-06-07 09:01:00 98.20 degrees Carlton F Enrrique Heart Rate 2023-06-07 09:01:00 76.00 /min Jocelin en F Enrrique Respiratory Rate 2023-06-07 09:01:00 17.00 /min Carlton F Enrrique BP Systolic 2023-04-20 16:11:00 153 mm[Hg] Step hen F Enrrique BP Diastolic 2023-04-20 16:11:00 85 mm[Hg] Yair phen F Enrrique Weight Measured 2023-04-20 16:11:00 143.00 pounds Carlton F Enrrique Height Measured 2023-04-20 16:11:00 57.13 inches Carlton F Enrrique Body Temperature 2023-04-20 16:11:00 98.10 degrees Carlton F Enrrique Heart Rate 2023-04-20 16:11:00 77.00 /min Jocelin en F Enrrique Respiratory Rate 2023-04-20 16:11:00 Carlton F Enrrique BP Systolic 2023-04-18 17:05:00 154 mm[Hg] Step hen F Enrriqeu BP Diastolic 2023-04-18 17:05:00 90 mm[Hg] Yair phen F Enrrique Weight Measured 2023-04-18 17:05:00 141.00 pounds Carlton F Enrrique Height Measured 2023-04-18 17:05:00 57.13 inches Carlton F Enrrique Body Temperature 2023-04-18 17:05:00 98.20 degrees Carlton F Enrrique Heart Rate 2023-04-18 17:05:00 77.00 /min Jocelin en F Enrrique Respiratory Rate 2023-04-18 17:05:00 18.00 /min Carlton Osuna Encounters Start Date/Time End Date/Time Encounter Type Admission Type Attending [facility] Care Department Encounter ID Source 2024-01-09 10:37:44 2024-01-09 10:37:44 Outpatient SFA SFA [id number] Carlton Osuna 2024-01-09 00:00:00 2024-01-09 00:00:00 Outpatient Visit SFA [id number] Carlton Osuna 2023-11-02 09:57:30 2023-11-02 09:57:30 Outpatient SFA SFA [id number] Carlton Osuna 2023-11-02 00:00:00 2023-11-02 00:00:00 Outpatient Visit SFA [id number] Carlton Osuan 2023-10-15 15:35:15 2023-10-15 15:35:15 Outpatient SFA SFA [id number] Carlton Osuna 2023-10-15 00:00:00 2023-10-15 00:00:00 Outpatient Visit SFA [id number] Carlton Osuna 2023-10-12 15:33:01 2023-10-12 15:33:01 Outpatient SFA SFA [id number] Carlton Osuna 2023-10-12 00:00:00 2023-10-12 00:00:00 Outpatient Visit SFA [id number] Carlton Osuna 2023-10-08 17:35:18 2023-10-08 17:35:18 Outpatient SFA SFA [id number] Carlton Osuna 2023-10-08 00:00:00 2023-10-08 00:00:00 Outpatient Visit SFA [id number] Carlton Osuna 2023-10-04 15:39:59 2023-10-04 15:39:59 Outpatient SFA SFA 06 Carlton Osuna 2023-08-29 14:49:13 2023-08-29 14:49:13 Outpatient SFA SFA [id number] Carlton Osuna 2023-08-29 00:00:00 2023-08-29 00:00:00 Outpatient Visit SFA [id number] Carlton Osuna 2023-08-21 15:57:36 2023-08-21 15:57:36 Outpatient SFA SFA [id number] Carlton Osuna 2023-08-21 00:00:00 2023-08-21 00:00:00 Outpatient Visit SFA [id number] Carlton Osuna 2023-07-25 15:47:04 2023-07-25 15:47:04 Outpatient SFA SFA [id number] Carlton Osuna 2023-07-02 15:41:55 2023-07-02 15:41:55 Outpatient SFA SFA [id number] Carltno Osuna 2023-06-12 16:30:18 2023-06-12 16:30:18 Outpatient SFA SFA 7 Carlton Mauricio Enrrique 2023-06-07 08:53:27 2023-06-07 08:53:27 Outpatient SFA SFA [id number] Carlton Mauricio Enrrique 2023-05-29 16:39:22 2023-05-29 16:39:22 Outpatient SFA SFA [id number] Carlton Mauricio Enrrique 2023-04-20 16:04:33 2023-04-20 16:04:33 Outpatient SFA SFA [id number] Carlton Mauricio Enrrique 2023-04-19 15:52:46 2023-04-19 15:52:46 Outpatient SFA SFA [id number] Carlton Mauricio Enrrique 2020-09-06 13:00:00 2020-09-06 13:00:00 Outpatient MANUEL MUIR [facility] [id number] [facility] 2020-08-10 08:00:00 2020-08-10 08:00:00 Outpatient R HAIDER ALEJANDRO [facility] [id number] [facility] 2020-04-29 13:40:00 2020-04-29 13:40:00 Outpatient R HAIDER ALEJANDRO [facility] [id number] [facility] 2020-04-27 08:20:00 2020-04-27 08:20:00 Outpatient R [facility] [id number] [facility] 2020-02-21 12:30:00 2020-02-21 12:30:00 Outpatient R [facility] [id number] [facility] 2019-12-29 14:40:00 2019-12-29 14:40:00 Outpatient R HAIDER ALEJANDRO [facility] [id number] [facility] 2019-10-09 13:00:00 2019-10-09 13:00:00 Outpatient R AKBAR KIRSTIE [facility] [id number] [facility] 2019-09-26 15:00:00 2019-09-26 15:00:00 Outpatient R AMAURIROSA MANUEL [facility] [id number] [facility] 2019-09-05 10:00:00 2019-09-05 10:00:00 Outpatient R KASSIDY BAXTER [facility] [id number] [facility] 2019-09-04 10:00:00 2019-09-04 10:00:00 [id number] 2019-08-28 10:40:00 2019-08-28 10:40:00 Outpatient R HAIDER ALEJANDRO [facility] [id number] [facility] 2019-07-17 16:00:00 2019-07-17 16:00:00 Outpatient R HAIDER ALEJANDRO [facility] [id number] [facility] 2019-07-11 15:40:00 2019-07-11 15:40:00 Outpatient HAIDER OZUNA [facility] [id number] [facility] 2019-06-27 10:40:00 2019-06-27 10:40:00 Outpatient HAIDER OZUNA [facility] [id number] [facility] Results Test Description Test Time Test Comments Results Result Co mments Source COMPREHENSIVE METABOLIC [id number] 00:00:00* Test Item Value Reference Range Interpretation Comme nts GLUCOSE (test code = 2217) 162 MG/DL BUN (test code = 2208) 11 MG/DL CREATININE (test code = 2214) 0.71 MG/DL eGFR (2020 CKD-EPI) (test co de = 96623) 94 ML/MIN/1.73 CALC BUN/CREAT (test code = 2235) 15 RATIO SODIUM (test code = 2231) 139 MEQ/L POTASSIUM (test code = 2228) 3.8 MEQ/L CHLORIDE (test code = 2215) 102 MEQ/L CARBON DIOXIDE (test code = 2206) 22 MEQ/L CALCIUM (test code = 2209) 9.0 MG/DL PROTEIN, TOTAL (test code = 2229) 6.6 G/DL ALBUMIN (test code = 2201) 4.3 G/DL CALC GLOBULIN (test code = 2240) 2.3 G/DL CALC A/G RATIO (test code = 2234) 1.9 RATIO BILIRUBIN, TOTAL (test code = 2207) 0.9 MG/DL ALKALINE PHOSPHATASE (test code = 2204) 141 U/L AST (test code = 2218) 54 U/L ALT (test code = 2219) 65 U/L Carlton OsunaCOMPREHENSIVE METABOLIC [id number] 00:00:00* Test Item Value Reference Range Interpretation Comme nts GLUCOSE (test code = 2217) 162 MG/DL BUN (test code = 2208) 11 MG/DL CREATININE (test code = 2214) 0.71 MG/DL eGFR (2020 CKD-EPI) (test co de = 00845) 94 ML/MIN/1.73 CALC BUN/CREAT (test code = 2235) 15 RATIO SODIUM (test code = 2231) 139 MEQ/L POTASSIUM (test code = 2228) 3.8 MEQ/L CHLORIDE (test code = 2215) 102 MEQ/L CARBON DIOXIDE (test code = 2206) 22 MEQ/L CALCIUM (test code = 2209) 9.0 MG/DL PROTEIN, TOTAL (test code = 2229) 6.6 G/DL ALBUMIN (test code = 2201) 4.3 G/DL CALC GLOBULIN (test code = 2240) 2.3 G/DL CALC A/G RATIO (test code = 2234) 1.9 RATIO BILIRUBIN, TOTAL (test code = 2207) 0.9 MG/DL ALKALINE PHOSPHATASE (test code = 2204) 141 U/L AST (test code = 2218) 54 U/L ALT (test code = 2219) 65 U/L Carlton Mauricio HumboldtCOMPREHENSIVE METABOLIC [id number] 00:00:00* Test Item Value Reference Range Interpretation Comme nts GLUCOSE (test code = 2217) 162 MG/DL BUN (test code = 2208) 11 MG/DL CREATININE (test code = 2214) 0.71 MG/DL eGFR (2020 CKD-EPI) (test co de = 11228) 94 ML/MIN/1.73 CALC BUN/CREAT (test code = 2235) 15 RATIO SODIUM (test code = 2231) 139 MEQ/L POTASSIUM (test code = 2228) 3.8 MEQ/L CHLORIDE (test code = 2215) 102 MEQ/L CARBON DIOXIDE (test code = 2206) 22 MEQ/L CALCIUM (test code = 2209) 9.0 MG/DL PROTEIN, TOTAL (test code = 2229) 6.6 G/DL ALBUMIN (test code = 2201) 4.3 G/DL CALC GLOBULIN (test code = 2240) 2.3 G/DL CALC A/G RATIO (test code = 2234) 1.9 RATIO BILIRUBIN, TOTAL (test code = 2207) 0.9 MG/DL ALKALINE PHOSPHATASE (test code = 2204) 141 U/L AST (test code = 2218) 54 U/L ALT (test code = 2219) 65 U/L Carlton F HumboldtCOMPREHENSIVE METABOLIC [id number] 00:00:00* Test Item Value Reference Range Interpretation Comme nts GLUCOSE (test code = 2217) 162 MG/DL BUN (test code = 2208) 11 MG/DL CREATININE (test code = 2214) 0.71 MG/DL eGFR (2020 CKD-EPI) (test co de = 52943) 94 ML/MIN/1.73 CALC BUN/CREAT (test code = 2235) 15 RATIO SODIUM (test code = 2231) 139 MEQ/L POTASSIUM (test code = 2228) 3.8 MEQ/L CHLORIDE (test code = 2215) 102 MEQ/L CARBON DIOXIDE (test code = 2206) 22 MEQ/L CALCIUM (test code = 2209) 9.0 MG/DL PROTEIN, TOTAL (test code = 2229) 6.6 G/DL ALBUMIN (test code = 2201) 4.3 G/DL CALC GLOBULIN (test code = 2240) 2.3 G/DL CALC A/G RATIO (test code = 2234) 1.9 RATIO BILIRUBIN, TOTAL (test code = 2207) 0.9 MG/DL ALKALINE PHOSPHATASE (test code = 2204) 141 U/L AST (test code = 2218) 54 U/L ALT (test code = 2219) 65 U/L Carlton OsunaCOMPREHENSIVE METABOLIC [id number] 00:00:00* Test Item Value Reference Range Interpretation Comme nts GLUCOSE (test code = 2217) 162 MG/DL BUN (test code = 2208) 11 MG/DL CREATININE (test code = 2214) 0.71 MG/DL eGFR (2020 CKD-EPI) (test co de = 91108) 94 ML/MIN/1.73 CALC BUN/CREAT (test code = 2235) 15 RATIO SODIUM (test code = 2231) 139 MEQ/L POTASSIUM (test code = 2228) 3.8 MEQ/L CHLORIDE (test code = 2215) 102 MEQ/L CARBON DIOXIDE (test code = 2206) 22 MEQ/L CALCIUM (test code = 2209) 9.0 MG/DL PROTEIN, TOTAL (test code = 2229) 6.6 G/DL ALBUMIN (test code = 2201) 4.3 G/DL CALC GLOBULIN (test code = 2240) 2.3 G/DL CALC A/G RATIO (test code = 2234) 1.9 RATIO BILIRUBIN, TOTAL (test code = 2207) 0.9 MG/DL ALKALINE PHOSPHATASE (test code = 2204) 141 U/L AST (test code = 2218) 54 U/L ALT (test code = 2219) 65 U/L Carlton OsunaCOMPREHENSIVE METABOLIC [id number] 00:00:00* Test Item Value Reference Range Interpretation Comme nts GLUCOSE (test code = 2217) 162 MG/DL BUN (test code = 2208) 11 MG/DL CREATININE (test code = 2214) 0.71 MG/DL eGFR (2020 CKD-EPI) (test co de = 71414) 94 ML/MIN/1.73 CALC BUN/CREAT (test code = 2235) 15 RATIO SODIUM (test code = 2231) 139 MEQ/L POTASSIUM (test code = 2228) 3.8 MEQ/L CHLORIDE (test code = 2215) 102 MEQ/L CARBON DIOXIDE (test code = 2206) 22 MEQ/L CALCIUM (test code = 2209) 9.0 MG/DL PROTEIN, TOTAL (test code = 2229) 6.6 G/DL ALBUMIN (test code = 2201) 4.3 G/DL CALC GLOBULIN (test code = 2240) 2.3 G/DL CALC A/G RATIO (test code = 2234) 1.9 RATIO BILIRUBIN, TOTAL (test code = 2207) 0.9 MG/DL ALKALINE PHOSPHATASE (test code = 2204) 141 U/L AST (test code = 2218) 54 U/L ALT (test code = 2219) 65 U/L Carlton OsunaCOMPREHENSIVE METABOLIC [id number] 00:00:00* Test Item Value Reference Range Interpretation Comme nts GLUCOSE (test code = 2217) 162 MG/DL BUN (test code = 2208) 11 MG/DL CREATININE (test code = 2214) 0.71 MG/DL eGFR (2020 CKD-EPI) (test co de = 85140) 94 ML/MIN/1.73 CALC BUN/CREAT (test code = 2235) 15 RATIO SODIUM (test code = 2231) 139 MEQ/L POTASSIUM (test code = 2228) 3.8 MEQ/L CHLORIDE (test code = 2215) 102 MEQ/L CARBON DIOXIDE (test code = 2206) 22 MEQ/L CALCIUM (test code = 2209) 9.0 MG/DL PROTEIN, TOTAL (test code = 2229) 6.6 G/DL ALBUMIN (test code = 2201) 4.3 G/DL CALC GLOBULIN (test code = 2240) 2.3 G/DL CALC A/G RATIO (test code = 2234) 1.9 RATIO BILIRUBIN, TOTAL (test code = 2207) 0.9 MG/DL ALKALINE PHOSPHATASE (test code = 2204) 141 U/L AST (test code = 2218) 54 U/L ALT (test code = 2219) 65 U/L Carlton OsunaVITAMIN D, 25 [id number] 08:15:47* Test Item Value Reference Range Interpretation Comme nts VITAMIN D, 25 OH (test code = 4958) 33 NG/ML SEE BELOW EFFECTIVE 2022, PLEASE NOTE NEW METHODOLOGY IS ELECTROCHEMILUMINESCENCE BINDING ASSAY. NOTE: 25-HYDROXYVITAMIN D ASSAY INCLUDES 25-HYDROXYVITAMIN D2 AND D3. INTERPRETIVE RANGES PEDIATRIC (<17 YEARS) . . . . . . . . . . . NG/ML 20-100ADULT: INSUFFICIENT . . . . . . . . . . . . . . NG/ML <20 SUBOPTIMAL . . . . . . . . . . . . . . . NG/ML 20-29 OPTIMAL . . . . . . . . . . . . . . . . . NG/ML 30-100 UNLESS OTHERWISE INDICATED, ALL TESTING PERFORMED AT [facility] [address] [place] [address] WIRE TAPER: RAMANA BRAGG M.D. CLIA NUMBER [id number] [place] [id number] TSH, THIRD [id number] 08:15:34* Test Item Value Reference Range Interpretation Comme nts TSH, THIRD GENERATION (test code = 2821) 1.480 UIU/ML 0.400-4.100 COMPREHENSIVE METABOLIC [id number] 08:15:11* Test Item Value Reference Range Interpretation Comme nts GLUCOSE (test code = 2217) 150 MG/DL 70-99 H BUN (test code = 2208) 14 MG/DL 8-23 CREATININE (test code = 2214) 0.67 MG/DL 0.60-1.30 eGFR (2020 CKD-EPI) (test co de = 73892) 98 ML/MIN/1.73 >60 CALC BUN/CREAT (test code = 2235) 21 RATIO 6-28 SODIUM (test code = 2230) 138 MEQ/L 133-146 POTASSIUM (test code = 2227) 3.9 MEQ/L 3.5-5.4 CHLORIDE (test code = 2214) 102 MEQ/L 95-107 CARBON DIOXIDE (test code = 2205) 26 MEQ/L 19-31 CALCIUM (test code = 2208) 9.3 MG/DL 8.5-10.5 PROTEIN, TOTAL (test code = 2228) 6.7 G/DL 6.1-8.3 ALBUMIN (test code = 2200) 4.4 G/DL 3.5-5.2 CALC GLOBULIN (test code = 2239) 2.3 G/DL 1.9-3.7 CALC A/G RATIO (test code = 2233) 1.9 RATIO 1.0-2.6 BILIRUBIN, TOTAL (test code = 2206) 0.9 MG/DL <=1.2 ALKALINE PHOSPHATASE (test code = 2203) 148 U/L 40-140 H AST (test code = 2217) 63 U/L 9-40 H ALT (test code = 2218) 83 U/L 5-40 H LIPID [id number] 08:15:11* Test Item Value Reference Range Interpretation Comme nts CHOLESTEROL (test code = 2209) 208 MG/DL <200 H TRIGLYCERIDES (test code = 2231) 148 MG/DL <150 HDL CHOLESTEROL (test code = 2219) 66 MG/DL >39 CALC LDL CHOL (test code = 2236) 116 MG/DL <100 H NOTE: CALCULATED LDL IS BASED ON MARIA ALEJANDRA-DUMAS METHOD WHICHINCLUDES ADJUSTABLE TRIGLYCERIDE:VLDL CHOLESTEROL RATIO.THIS FACTOR VARIES BY MEASURED TRIGLYCERIDE AND NON-HDLCHOLESTEROL CONCENTRATIONS WITH INCREASED CALCULATED LDL SEENIN HIGHER TRIGLYCERIDE OR LOWER NON-HDL SPECIMENS. FOR MOREINFORMATION, SEE CLIENT ANNOUNCEMENT AT [email or web address] [email or web address] RATIO LDL/HDL (test code = 2237) 1.76 RATIO <3.22 HEMOGLOBIN [id number] 06:44:42* Test Item Value Reference Range Interpretation Comme nts HEMOGLOBIN A1c (test code = 34636) 5.8 % 4.2-5.6 H [employer] GUIDELINES FOR HGB A1C: [...] OR LABORATORY CONSULTATION. CBC W/AUTO DIFF WITH [id number] 03:30:54* Test Item Value Reference Range Interpretation [...] = 1065) 0.0 /100 WBC'S See_Comment [Automated messa ge] The system which generated this result [...] 0.00-0.10 ABS NUCLEATED RBCS (test code = 60102) 0.00 K/UL 0.00-0.11 LIPID [id number] 00:00:00* Test Item Value Reference Range Interpretation Comme nts CHOLESTEROL (test code = 2210) 208 MG/DL TRIGLYCERIDES (test code = 2232) 148 MG/DL HDL CHOLESTEROL (test code = 2220) 66 MG/DL CALC LDL CHOL (test code = 2237) 116 MG/DL RISK RATIO LDL/HDL (test cod e = 2238) 1.76 RATIO [facility] W/AUTO [id number] 00:00:00* Test Item Value Reference Range Interpretation Comme nts WBC (test code = 1001) 4.6 K/UL RBC (test code = 1002) 4.30 M/UL HEMOGLOBIN (test code = 1003) 13.2 G/DL HEMATOCRIT (test code = 1004) 37.7 % MCV (test code = 1005) 87.7 fL MCH (test code = 1006) 30.7 PG MCHC (test code = 1007) 35.0 G/DL RDW (test code = 1038) 12.4 % NEUTROPHILS (test code = 1008) 54.1 % LYMPHOCYTES (test code = 1010) 37.4 % MONOCYTES (test code = 1011) 8.1 % EOSINOPHILS (test code = 1012) 0.0 % BASOPHILS (test code = 1013) 0.0 % IMMATURE GRANULOCYTES (test code = 1036) 0.4 % NUCLEATED RBCS (test code = 1065) 0.0 /100WBC'S PLATELET COUNT (test code = 1015) 165 K/UL ABSOLUTE NEUTROPHILS (test c ode = 1066) 2.46 K/UL ABSOLUTE LYMPHOCYTES (test c ode = 1067) 1.70 K/UL ABSOLUTE MONOCYTES (test cod e = 1068) 0.37 K/UL ABSOLUTE EOSINOPHILS (test c ode = 1040) 0.00 K/UL ABSOLUTE BASOPHILS (test cod e = 1069) 0.00 K/UL ABS IMMATURE GRANULOCYTES (t est code = 1020) 0.02 K/UL ABS NUCLEATED RBCS (test cod e = 31437) 0.00 K/UL Carlton OsunaHEMOGLOBIN [id number] 00:00:00* Test Item Value Reference Range Interpretation Comme eryn HEMOGLOBIN A1c (test code = 23825) 5.8 % Carlton OsunaTSH, THIRD [id number] 00:00:00* Test Item Value Reference Range Interpretation Comme nts TSH, THIRD GENERATION (test code = 2821) 1.480 UIU/ML Carlton OsunaVITAMIN D, 25 [id number] 00:00:00* Test Item Value Reference Range Interpretation Comme nts VITAMIN D, 25 OH (test code = 4958) 33 NG/ML Carlton OsunaCOMPREHENSIVE METABOLIC [id number] 00:00:00* Test Item Value Reference Range Interpretation Comme nts GLUCOSE (test code = 2217) 150 MG/DL BUN (test code = 2208) 14 MG/DL CREATININE (test code = 2214) 0.67 MG/DL eGFR (2020 CKD-EPI) (test co de = 77323) 98 ML/MIN/1.73 CALC BUN/CREAT (test code = 2235) 21 RATIO SODIUM (test code = 2231) 138 MEQ/L POTASSIUM (test code = 2228) 3.9 MEQ/L CHLORIDE (test code = 2215) 102 MEQ/L CARBON DIOXIDE (test code = 2206) 26 MEQ/L CALCIUM (test code = 2209) 9.3 MG/DL PROTEIN, TOTAL (test code = 2229) 6.7 G/DL ALBUMIN (test code = 2201) 4.4 G/DL CALC GLOBULIN (test code = 2240) 2.3 G/DL CALC A/G RATIO (test code = 2234) 1.9 RATIO BILIRUBIN, TOTAL (test code = 2207) 0.9 MG/DL ALKALINE PHOSPHATASE (test code = 2204) 148 U/L AST (test code = 2218) 63 U/L ALT (test code = 2219) 83 U/L Carlton OsunaLIPID [id number] 00:00:00* Test Item Value Reference Range Interpretation Comme nts CHOLESTEROL (test code = 2210) 208 MG/DL TRIGLYCERIDES (test code = 2232) 148 MG/DL HDL CHOLESTEROL (test code = 2220) 66 MG/DL CALC LDL CHOL (test code = 2237) 116 MG/DL RISK RATIO LDL/HDL (test cod e = 2238) 1.76 RATIO Carlton OsunaCBC W/AUTO [id number] 00:00:00* Test Item Value Reference Range Interpretation Comme nts WBC (test code = 1001) 4.6 K/UL RBC (test code = 1002) 4.30 M/UL HEMOGLOBIN (test code = 1003) 13.2 G/DL HEMATOCRIT (test code = 1004) 37.7 % MCV (test code = 1005) 87.7 fL MCH (test code = 1006) 30.7 PG MCHC (test code = 1007) 35.0 G/DL RDW (test code = 1038) 12.4 % NEUTROPHILS (test code = 1008) 54.1 % LYMPHOCYTES (test code = 1010) 37.4 % MONOCYTES (test code = 1011) 8.1 % EOSINOPHILS (test code = 1012) 0.0 % BASOPHILS (test code = 1013) 0.0 % IMMATURE GRANULOCYTES (test code = 1036) 0.4 % NUCLEATED RBCS (test code = 1065) 0.0 /100WBC'S PLATELET COUNT (test code = 1015) 165 K/UL ABSOLUTE NEUTROPHILS (test c ode = 1066) 2.46 K/UL ABSOLUTE LYMPHOCYTES (test c ode = 1067) 1.70 K/UL ABSOLUTE MONOCYTES (test cod e = 1068) 0.37 K/UL ABSOLUTE EOSINOPHILS (test c ode = 1040) 0.00 K/UL ABSOLUTE BASOPHILS (test cod e = 1069) 0.00 K/UL ABS IMMATURE GRANULOCYTES (t est code = 1020) 0.02 K/UL ABS NUCLEATED RBCS (test cod e = 37365) 0.00 K/UL Carlton OsunaHEMOGLOBIN [id number] 00:00:00* Test Item Value Reference Range Interpretation Comme nts HEMOGLOBIN A1c (test code = 08413) 5.8 % Carlton OsunaKWAKUH, THIRD [id number] 00:00:00* Test Item Value Reference Range Interpretation Comme nts TSH, THIRD GENERATION (test code = 2821) 1.480 UIU/ML Carlton Mauricio EnrriqueVITAMIN D, 25 [id number] 00:00:00* Test Item Value Reference Range Interpretation Comme nts VITAMIN D, 25 OH (test code = 4958) 33 NG/ML Carlton OsunaCOMPREHENSIVE METABOLIC [id number] 00:00:00* Test Item Value Reference Range Interpretation Comme nts GLUCOSE (test code = 2217) 150 MG/DL BUN (test code = 2208) 14 MG/DL CREATININE (test code = 2214) 0.67 MG/DL eGFR (2020 CKD-EPI) (test co de = 21353) 98 ML/MIN/1.73 CALC BUN/CREAT (test code = 2235) 21 RATIO SODIUM (test code = 2231) 138 MEQ/L POTASSIUM (test code = 2228) 3.9 MEQ/L CHLORIDE (test code = 2215) 102 MEQ/L CARBON DIOXIDE (test code = 2206) 26 MEQ/L CALCIUM (test code = 2209) 9.3 MG/DL PROTEIN, TOTAL (test code = 2229) 6.7 G/DL ALBUMIN (test code = 2201) 4.4 G/DL CALC GLOBULIN (test code = 2240) 2.3 G/DL CALC A/G RATIO (test code = 2234) 1.9 RATIO BILIRUBIN, TOTAL (test code = 2207) 0.9 MG/DL ALKALINE PHOSPHATASE (test code = 2204) 148 U/L AST (test code = 2218) 63 U/L ALT (test code = 2219) 83 U/L Carlton OsunaLIPID [id number] 00:00:00* Test Item Value Reference Range Interpretation Comme nts CHOLESTEROL (test code = 2210) 208 MG/DL TRIGLYCERIDES (test code = 2232) 148 MG/DL HDL CHOLESTEROL (test code = 2220) 66 MG/DL CALC LDL CHOL (test code = 2237) 116 MG/DL RISK RATIO LDL/HDL (test cod e = 2238) 1.76 RATIO Carlton Mauricio EnrriqueCBC W/AUTO [id number] 00:00:00* Test Item Value Reference Range Interpretation Comme nts WBC (test code = 1001) 4.6 K/UL RBC (test code = 1002) 4.30 M/UL HEMOGLOBIN (test code = 1003) 13.2 G/DL HEMATOCRIT (test code = 1004) 37.7 % MCV (test code = 1005) 87.7 fL MCH (test code = 1006) 30.7 PG MCHC (test code = 1007) 35.0 G/DL RDW (test code = 1038) 12.4 % NEUTROPHILS (test code = 1008) 54.1 % LYMPHOCYTES (test code = 1010) 37.4 % MONOCYTES (test code = 1011) 8.1 % EOSINOPHILS (test code = 1012) 0.0 % BASOPHILS (test code = 1013) 0.0 % IMMATURE GRANULOCYTES (test code = 1036) 0.4 % NUCLEATED RBCS (test code = 1065) 0.0 /100WBC'S PLATELET COUNT (test code = 1015) 165 K/UL ABSOLUTE NEUTROPHILS (test c ode = 1066) 2.46 K/UL ABSOLUTE LYMPHOCYTES (test c ode = 1067) 1.70 K/UL ABSOLUTE MONOCYTES (test cod e = 1068) 0.37 K/UL ABSOLUTE EOSINOPHILS (test c ode = 1040) 0.00 K/UL ABSOLUTE BASOPHILS (test cod e = 1069) 0.00 K/UL ABS IMMATURE GRANULOCYTES (t est code = 1020) 0.02 K/UL ABS NUCLEATED RBCS (test cod e = 42206) 0.00 K/UL Carlton OsunaHEMOGLOBIN [id number] 00:00:00* Test Item Value Reference Range Interpretation Comme [facility] HEMOGLOBIN A1c (test code = 77997) 5.8 % Carlton OsunaTSH, THIRD [id number] 00:00:00* Test Item Value Reference Range Interpretation Comme [facility] TSH, THIRD GENERATION (test code = 2821) 1.480 UIU/ML Carlton OsunaVITAMIN D, 25 [id number] 00:00:00* Test Item Value Reference Range Interpretation Comme [facility] VITAMIN D, 25 OH (test code = 4958) 33 NG/ML Carlton OsunaCOMPREHENSIVE METABOLIC [id number] 00:00:00* Test Item Value Reference Range Interpretation Comme nts GLUCOSE (test code = 2217) 150 MG/DL BUN (test code = 2208) 14 MG/DL CREATININE (test code = 2214) 0.67 MG/DL eGFR (2020 CKD-EPI) (test co de = 08579) 98 ML/MIN/1.73 CALC BUN/CREAT (test code = 2235) 21 RATIO SODIUM (test code = 2231) 138 MEQ/L POTASSIUM (test code = 2228) 3.9 MEQ/L CHLORIDE (test code = 2215) 102 MEQ/L CARBON DIOXIDE (test code = 2206) 26 MEQ/L CALCIUM (test code = 2209) 9.3 MG/DL PROTEIN, TOTAL (test code = 2229) 6.7 G/DL ALBUMIN (test code = 2201) 4.4 G/DL CALC GLOBULIN (test code = 2240) 2.3 G/DL CALC A/G RATIO (test code = 2234) 1.9 RATIO BILIRUBIN, TOTAL (test code = 2207) 0.9 MG/DL ALKALINE PHOSPHATASE (test code = 2204) 148 U/L AST (test code = 2218) 63 U/L ALT (test code = 2219) 83 U/L Carlton Mauricio EnrriqueLIPID [id number] 00:00:00* Test Item Value Reference Range Interpretation Comme nts CHOLESTEROL (test code = 2210) 208 MG/DL TRIGLYCERIDES (test code = 2232) 148 MG/DL HDL CHOLESTEROL (test code = 2220) 66 MG/DL CALC LDL CHOL (test code = 2237) 116 MG/DL RISK RATIO LDL/HDL (test cod e = 2238) 1.76 RATIO Carlton Mauricio EnrriqueCBC W/AUTO [id number] 00:00:00* Test Item Value Reference Range Interpretation Comme nts WBC (test code = 1001) 4.6 K/UL RBC (test code = 1002) 4.30 M/UL HEMOGLOBIN (test code = 1003) 13.2 G/DL HEMATOCRIT (test code = 1004) 37.7 % MCV (test code = 1005) 87.7 fL MCH (test code = 1006) 30.7 PG MCHC (test code = 1007) 35.0 G/DL RDW (test code = 1038) 12.4 % NEUTROPHILS (test code = 1008) 54.1 % LYMPHOCYTES (test code = 1010) 37.4 % MONOCYTES (test code = 1011) 8.1 % EOSINOPHILS (test code = 1012) 0.0 % BASOPHILS (test code = 1013) 0.0 % IMMATURE GRANULOCYTES (test code = 1036) 0.4 % NUCLEATED RBCS (test code = 1065) 0.0 /100WBC'S PLATELET COUNT (test code = 1015) 165 K/UL ABSOLUTE NEUTROPHILS (test c ode = 1066) 2.46 K/UL ABSOLUTE LYMPHOCYTES (test c ode = 1067) 1.70 K/UL ABSOLUTE MONOCYTES (test cod e = 1068) 0.37 K/UL ABSOLUTE EOSINOPHILS (test c ode = 1040) 0.00 K/UL ABSOLUTE BASOPHILS (test cod e = 1069) 0.00 K/UL ABS IMMATURE GRANULOCYTES (t est code = 1020) 0.02 K/UL ABS NUCLEATED RBCS (test cod e = 51510) 0.00 K/UL Carlton OsunaHEMOGLOBIN [id number] 00:00:00* Test Item Value Reference Range Interpretation Comme nts HEMOGLOBIN A1c (test code = 49284) 5.8 % Carlton OsunaTSH, THIRD [id number] 00:00:00* Test Item Value Reference Range Interpretation Comme [facility] TSH, THIRD GENERATION (test code = 2821) 1.480 UIU/ML Carlton OsunaVITAMIN D, 25 [id number] 00:00:00* Test Item Value Reference Range Interpretation Comme nts VITAMIN D, 25 OH (test code = 4958) 33 NG/ML Carlton OsunaCOMPREHENSIVE METABOLIC [id number] 00:00:00* Test Item Value Reference Range Interpretation Comme nts GLUCOSE (test code = 2217) 150 MG/DL BUN (test code = 2208) 14 MG/DL CREATININE (test code = 2214) 0.67 MG/DL eGFR (2020 CKD-EPI) (test co de = 24604) 98 ML/MIN/1.73 CALC BUN/CREAT (test code = 2235) 21 RATIO SODIUM (test code = 2231) 138 MEQ/L POTASSIUM (test code = 2228) 3.9 MEQ/L CHLORIDE (test code = 2215) 102 MEQ/L CARBON DIOXIDE (test code = 2206) 26 MEQ/L CALCIUM (test code = 2209) 9.3 MG/DL PROTEIN, TOTAL (test code = 2229) 6.7 G/DL ALBUMIN (test code = 2201) 4.4 G/DL CALC GLOBULIN (test code = 2240) 2.3 G/DL CALC A/G RATIO (test code = 2234) 1.9 RATIO BILIRUBIN, TOTAL (test code = 2207) 0.9 MG/DL ALKALINE PHOSPHATASE (test code = 2204) 148 U/L AST (test code = 2218) 63 U/L ALT (test code = 2219) 83 U/L Carlton OsunaLIPID [id number] 00:00:00* Test Item Value Reference Range Interpretation Comme nts CHOLESTEROL (test code = 2210) 208 MG/DL TRIGLYCERIDES (test code = 2232) 148 MG/DL HDL CHOLESTEROL (test code = 2220) 66 MG/DL CALC LDL CHOL (test code = 2237) 116 MG/DL RISK RATIO LDL/HDL (test cod e = 2238) 1.76 RATIO Carlton OsunaCBC W/AUTO [id number] 00:00:00* Test Item Value Reference Range Interpretation Comme nts WBC (test code = 1001) 4.6 K/UL RBC (test code = 1002) 4.30 M/UL HEMOGLOBIN (test code = 1003) 13.2 G/DL HEMATOCRIT (test code = 1004) 37.7 % MCV (test code = 1005) 87.7 fL MCH (test code = 1006) 30.7 PG MCHC (test code = 1007) 35.0 G/DL RDW (test code = 1038) 12.4 % NEUTROPHILS (test code = 1008) 54.1 % LYMPHOCYTES (test code = 1010) 37.4 % MONOCYTES (test code = 1011) 8.1 % EOSINOPHILS (test code = 1012) 0.0 % BASOPHILS (test code = 1013) 0.0 % IMMATURE GRANULOCYTES (test code = 1036) 0.4 % NUCLEATED RBCS (test code = 1065) 0.0 /100WBC'S PLATELET COUNT (test code = 1015) 165 K/UL ABSOLUTE NEUTROPHILS (test c ode = 1066) 2.46 K/UL ABSOLUTE LYMPHOCYTES (test c ode = 1067) 1.70 K/UL ABSOLUTE MONOCYTES (test cod e = 1068) 0.37 K/UL ABSOLUTE EOSINOPHILS (test c ode = 1040) 0.00 K/UL ABSOLUTE BASOPHILS (test cod e = 1069) 0.00 K/UL ABS IMMATURE GRANULOCYTES (t est code = 1020) 0.02 K/UL ABS NUCLEATED RBCS (test cod e = 82498) 0.00 K/UL Carlton OsunaHEMOGLOBIN [id number] 00:00:00* Test Item Value Reference Range Interpretation Comme nts HEMOGLOBIN A1c (test code = 64422) 5.8 % Carlton OsunaTSH, THIRD [id number] 00:00:00* Test Item Value Reference Range Interpretation Comme nts TSH, THIRD GENERATION (test code = 2821) 1.480 UIU/ML Carlton OsunaVITAMIN D, 25 [id number] 00:00:00* Test Item Value Reference Range Interpretation Comme nts VITAMIN D, 25 OH (test code = 4958) 33 NG/ML Carlton OsunaCOMPREHENSIVE METABOLIC [id number] 00:00:00* Test Item Value Reference Range Interpretation Comme nts GLUCOSE (test code = 2217) 150 MG/DL BUN (test code = 2208) 14 MG/DL CREATININE (test code = 2214) 0.67 MG/DL eGFR (2020 CKD-EPI) (test co de = 23954) 98 ML/MIN/1.73 CALC BUN/CREAT (test code = 2235) 21 RATIO SODIUM (test code = 2231) 138 MEQ/L POTASSIUM (test code = 2228) 3.9 MEQ/L CHLORIDE (test code = 2215) 102 MEQ/L CARBON DIOXIDE (test code = 2206) 26 MEQ/L CALCIUM (test code = 2209) 9.3 MG/DL PROTEIN, TOTAL (test code = 2229) 6.7 G/DL ALBUMIN (test code = 2201) 4.4 G/DL CALC GLOBULIN (test code = 2240) 2.3 G/DL CALC A/G RATIO (test code = 2234) 1.9 RATIO BILIRUBIN, TOTAL (test code = 2207) 0.9 MG/DL ALKALINE PHOSPHATASE (test code = 2204) 148 U/L AST (test code = 2218) 63 U/L ALT (test code = 2219) 83 U/L Carlton OsunaLIPID [id number] 00:00:00* Test Item Value Reference Range Interpretation Comme nts CHOLESTEROL (test code = 2210) 208 MG/DL TRIGLYCERIDES (test code = 2232) 148 MG/DL HDL CHOLESTEROL (test code = 2220) 66 MG/DL CALC LDL CHOL (test code = 2237) 116 MG/DL RISK RATIO LDL/HDL (test cod e = 2238) 1.76 RATIO Carlton OsunaCBC W/AUTO [id number] 00:00:00* Test Item Value Reference Range Interpretation Comme nts WBC (test code = 1001) 4.6 K/UL RBC (test code = 1002) 4.30 M/UL HEMOGLOBIN (test code = 1003) 13.2 G/DL HEMATOCRIT (test code = 1004) 37.7 % MCV (test code = 1005) 87.7 fL MCH (test code = 1006) 30.7 PG MCHC (test code = 1007) 35.0 G/DL RDW (test code = 1038) 12.4 % NEUTROPHILS (test code = 1008) 54.1 % LYMPHOCYTES (test code = 1010) 37.4 % MONOCYTES (test code = 1011) 8.1 % EOSINOPHILS (test code = 1012) 0.0 % BASOPHILS (test code = 1013) 0.0 % IMMATURE GRANULOCYTES (test code = 1036) 0.4 % NUCLEATED RBCS (test code = 1065) 0.0 /100WBC'S PLATELET COUNT (test code = 1015) 165 K/UL ABSOLUTE NEUTROPHILS (test c ode = 1066) 2.46 K/UL ABSOLUTE LYMPHOCYTES (test c ode = 1067) 1.70 K/UL ABSOLUTE MONOCYTES (test cod e = 1068) 0.37 K/UL ABSOLUTE EOSINOPHILS (test c ode = 1040) 0.00 K/UL ABSOLUTE BASOPHILS (test cod e = 1069) 0.00 K/UL ABS IMMATURE GRANULOCYTES (t est code = 1020) 0.02 K/UL ABS NUCLEATED RBCS (test cod e = 32149) 0.00 K/UL Carlton OsunaHEMOGLOBIN [id number] 00:00:00* Test Item Value Reference Range Interpretation Comme nts HEMOGLOBIN A1c (test code = 58155) 5.8 % Carlton OsunaTSH, THIRD [id number] 00:00:00* Test Item Value Reference Range Interpretation Comme nts TSH, THIRD GENERATION (test code = 2821) 1.480 UIU/ML Carlton OsunaVITAMIN D, 25 [id number] 00:00:00* Test Item Value Reference Range Interpretation Comme nts VITAMIN D, 25 OH (test code = 4958) 33 NG/ML Carlton OsunaCOMPREHENSIVE METABOLIC [id number] 00:00:00* Test Item Value Reference Range Interpretation Comme nts GLUCOSE (test code = 2217) 150 MG/DL BUN (test code = 2208) 14 MG/DL CREATININE (test code = 2214) 0.67 MG/DL eGFR (2020 CKD-EPI) (test co de = 61959) 98 ML/MIN/1.73 CALC BUN/CREAT (test code = 2235) 21 RATIO SODIUM (test code = 2231) 138 MEQ/L POTASSIUM (test code = 2228) 3.9 MEQ/L CHLORIDE (test code = 2215) 102 MEQ/L CARBON DIOXIDE (test code = 2206) 26 MEQ/L CALCIUM (test code = 2209) 9.3 MG/DL PROTEIN, TOTAL (test code = 2229) 6.7 G/DL ALBUMIN (test code = 2201) 4.4 G/DL CALC GLOBULIN (test code = 2240) 2.3 G/DL CALC A/G RATIO (test code = 2234) 1.9 RATIO BILIRUBIN, TOTAL (test code = 2207) 0.9 MG/DL ALKALINE PHOSPHATASE (test code = 2204) 148 U/L AST (test code = 2218) 63 U/L ALT (test code = 2219) 83 U/L Carlton OsunaLIPID [id number] 00:00:00* Test Item Value Reference Range Interpretation Comme nts CHOLESTEROL (test code = 2210) 208 MG/DL TRIGLYCERIDES (test code = 2232) 148 MG/DL HDL CHOLESTEROL (test code = 2220) 66 MG/DL CALC LDL CHOL (test code = 2237) 116 MG/DL RISK RATIO LDL/HDL (test cod e = 2238) 1.76 RATIO Carlton OsunaCBC W/AUTO [id number] 00:00:00* Test Item Value Reference Range Interpretation Comme nts WBC (test code = 1001) 4.6 K/UL RBC (test code = 1002) 4.30 M/UL HEMOGLOBIN (test code = 1003) 13.2 G/DL HEMATOCRIT (test code = 1004) 37.7 % MCV (test code = 1005) 87.7 fL MCH (test code = 1006) 30.7 PG MCHC (test code = 1007) 35.0 G/DL RDW (test code = 1038) 12.4 % NEUTROPHILS (test code = 1008) 54.1 % LYMPHOCYTES (test code = 1010) 37.4 % MONOCYTES (test code = 1011) 8.1 % EOSINOPHILS (test code = 1012) 0.0 % BASOPHILS (test code = 1013) 0.0 % IMMATURE GRANULOCYTES (test code = 1036) 0.4 % NUCLEATED RBCS (test code = 1065) 0.0 /100WBC'S PLATELET COUNT (test code = 1015) 165 K/UL ABSOLUTE NEUTROPHILS (test c ode = 1066) 2.46 K/UL ABSOLUTE LYMPHOCYTES (test c ode = 1067) 1.70 K/UL ABSOLUTE MONOCYTES (test cod e = 1068) 0.37 K/UL ABSOLUTE EOSINOPHILS (test c ode = 1040) 0.00 K/UL ABSOLUTE BASOPHILS (test cod e = 1069) 0.00 K/UL ABS IMMATURE GRANULOCYTES (t est code = 1020) 0.02 K/UL ABS NUCLEATED RBCS (test cod e = 08671) 0.00 K/UL Carlton OsunaHEMOGLOBIN [id number] 00:00:00* Test Item Value Reference Range Interpretation Comme nts HEMOGLOBIN A1c (test code = 74125) 5.8 % Carlton OsunaTSH, THIRD [id number] 00:00:00* Test Item Value Reference Range Interpretation Comme nts TSH, THIRD GENERATION (test code = 2821) 1.480 UIU/ML Carlton OsunaVITAMIN D, 25 [id number] 00:00:00* Test Item Value Reference Range Interpretation Comme nts VITAMIN D, 25 OH (test code = 4958) 33 NG/ML Carlton OsunaCOMPREHENSIVE METABOLIC [id number] 00:00:00* Test Item Value Reference Range Interpretation Comme nts GLUCOSE (test code = 2217) 150 MG/DL BUN (test code = 2208) 14 MG/DL CREATININE (test code = 2214) 0.67 MG/DL eGFR (2020 CKD-EPI) (test co de = 48189) 98 ML/MIN/1.73 CALC BUN/CREAT (test code = 2235) 21 RATIO SODIUM (test code = 2231) 138 MEQ/L POTASSIUM (test code = 2228) 3.9 MEQ/L CHLORIDE (test code = 2215) 102 MEQ/L CARBON DIOXIDE (test code = 2206) 26 MEQ/L CALCIUM (test code = 2209) 9.3 MG/DL PROTEIN, TOTAL (test code = 2229) 6.7 G/DL ALBUMIN (test code = 2201) 4.4 G/DL CALC GLOBULIN (test code = 2240) 2.3 G/DL CALC A/G RATIO (test code = 2234) 1.9 RATIO BILIRUBIN, TOTAL (test code = 2207) 0.9 MG/DL ALKALINE PHOSPHATASE (test code = 2204) 148 U/L AST (test code = 2218) 63 U/L ALT (test code = 2219) 83 U/L Carlton Osuna Notes Date/Time Note Provider Source [facility]2024-07-19 00:00:00 Carlton FBrianna [facility]2024-07-01 00:00:00 Carlton Brianna [facility]2024-06-28 [facility] FBrianna [facility]2024-05-15 00:00:00 [facility]2024-05-07 00:00:00 [facility]
[2025-01-04] MEDS ORDERED: ONDANSETRON 4 MG/2 ML VIAL ONE (15:21)
[2025-01-04] MEDS ORDERED: MORPHINE 4 MG/ML SYR ONE (15:22)
[2025-01-04] MEDS ORDERED: NA CHLORIDE 0.9% 1,000 ML ONE (15:22)
[2025-01-04 15:32] LABS: Absolute Lymphocytes (CBC) 1.3 K/uL (0.7-4.9); Hematocrit 40.9 % (36.0-45.0); Hemoglobin 13.9 g/dL (12.0-15.0); MCH 29.2 pg (27.0-35.0); MCHC 34.1 g/dL (32.0-36.0); MCV 85.7 fL (80-100); MPV 8.4 fL (7.6-11.3); Nucleated RBC Absolute Count 0.0 (0-0); Nucleated Red Blood Cells % 0.0 % (0-0); RBC Red Blood Cell Count 4.77 M/uL (3.86-4.86); White Blood Count 9.10 thou/uL (4.3-10.9)
[2025-01-04 15:44] LABS: ALT/SGPT 85.0 U/L (13-56); AST/SGOT 58.0 U/L (15-37); Albumin 3.8 g/dL (3.4-5.0); Albumin/Globulin Ratio 1.0 (1.1-1.8); Alkaline Phosphatase 124.0 U/L (45-117); Anion Gap 9.6 mEq/L (5.0-15.0); BUN Blood Urea Nitrogen 10.0 mg/dL (7-18); Globulin 3.8 g/dL (2.3-3.5); Glucose Level 139.0 mg/dL (74-106); Lipase 39.0 U/L (13-75); Potassium 3.6 mEq/L (3.5-5.1)
--- NOTE | 2025-01-04 16:16 | RAD REPORT ---
EXAMINATION: Abdomen Pelvis W Contrast CLINICAL INDICATION: Female, 64 years old.ABD PAIN TECHNIQUE: CT abdomen and pelvis was performed, after the administration of IV contrast, as [facility]. Axial, sagittal and coronal reconstructions were obtained. One or more of the following dose reduction techniques were used: Automated exposure control, adjustment of the mA and/o r kV according to patient size, and/or iterative reconstruction. Unless otherwise specified, incidental findings do not require dedicated imaging follow-up. [id number]. COMPARISON: 12/07/2018 FINDINGS: LOWER CHEST: No acute process identified.No significant pericardial effusion. Small hiatal hernia wit h circumferential thickening of the esophagus which could reflect esophagitis. UPPER GI: No significant abnormality. LIVER: Hepatic steatosis, but otherwise unremarkable. GALLBLADDER/BILE DUCTS: Cholecystectomy. Moderate extrahepatic biliary ductal dilatation. This could be secondary to the post-cholecystectomy state. Recommend correlation with LFT's. If abnormal, consider MRCP for further evaluation. ? PANCREAS: No mass, ductal dilation, or malina-pancreatic fluid. SPLEEN: Mild splenomegaly. ADRENALS: No adrenal masses. KIDNEYS AND URETERS: No hydronephrosis.Low density and/or too small to characterize renal lesions whi ch are statistically benign.No renal calculi.No ureteral calculi. ABDOMINAL AORTA AND OTHER VESSELS: Normal caliber aorta and IVC. PERITONEUM: No abnormal free fluid. No free air. LYMPH NODES: No pathologic lymphadenopathy. ABDOMINAL WALL: Small fat containing umbilical hernia. SMALL BOWEL/COLON: Acute diverticulitis of the distal sigmoid colon. No perforation or abscess. No pelon wel obstruction. Normal appendix. URINARY BLADDER: Underdistended but grossly unremarkable. REPRODUCTIVE ORGANS: No pathologic process. MUSCULOSKELETAL: No acute or suspicious osseous abnormality. ADDITIONAL FINDINGS: None. IMPRESSION: Nonperforated sigmoid diverticulitis.
[2025-01-04 16:21] LABS: Urine Microscopic Reflex YN NO UMIC
--- NOTE | 2025-01-04 16:42 | EDPHYS ---
Physician Documentation [facility] Name: Diamond Sterling Age: 64 yrs Sex: Female : 1960 Arrival Date: 01/04/2025 Time: 14:32 Bed 26 Private MD: ED Physician Rohan Cabrera HPI: 01/04 15:36 This 64 yrs old Female presents to ER via Ambulatory with complaints of sb4 Abdominal Pain. 15:36 The patient presents with abdominal pain in the lower abdomen. Onset: The sb4 symptoms/episode began/occurred last night. Patient reports lower abdominal pain that began last night. She states that it is associated with diarrhea, nausea, and vomiting. She reports a history of diverticulitis, is not sure if this is a flareup or not, feels different. Historical: - Allergies: 14:45 Benadryl; hb - PMHx: 14:45 Anxiety; Diverticulitis; Hypertension; Migraines; hb 14:46 Depression; hb - PSHx: 14:46 Cholecystectomy; section; hb - Immunization history:: Adult Immunizations unknown. - Infectious Disease History:: Denies. - Social history:: Smoking status: unknown. ROS: 15:42 Constitutional: Negative for fever, chills, and weight loss, sb4 15:42 Abdomen/GI: Positive for abdominal pain, nausea, vomiting, and diarrhea, 15:42 All other systems are negative, Exam: 15:42 Head/Face: Normocephalic, atraumatic. Eyes: Extra-ocular motions intact. Periorbital sb4 areas with no swelling, redness, or edema. ENT: Mucous membranes moist. Cardiovascular: Regular rate and rhythm with a normal S1 and S2. Respiratory: No increased work of breathing, no retractions or nasal flaring. Skin: Warm, dry with normal turgor. Normal color with no rashes, no lesions, and no evidence of cellulitis. 15:42 Constitutional: The patient appears alert, awake, uncomfortable, 15:42 Abdomen/GI: Inspection: abdomen appears normal, Palpation: soft, mild abdominal tenderness, in the right lower quadrant and left lower quadrant, Vital Signs: 14:44 BP 183 / 92; Pulse 82; Resp 15; Temp 98.4(O); Pulse Ox 98% on R/A; Weight 63.5 kg; hb Height 4 ft. 9 in. ; Pain 5/10; 15:10 BP 150 / 76; Pulse 83; Resp 18; Pulse Ox 95% on R/A; kj2 16:10 BP 149 / 76; Pulse 82; Resp 18; Pulse Ox 98% ; kj2 17:16 BP 130 / 85; Pulse 88; Resp 20; Temp 98.2; Pulse Ox 99% on R/A; kj2 14:44 Body Mass Index 30.30 (63.50 kg, 144.78 cm) hb 14:44 Pain Scale: Adult hb MDM: 14:37 Medical Screening Exam initiated sb4 15:42 Differential diagnosis: diverticulitis, non-specific abd pain, urinary tract infection, sb4 colitis. 16:41 Data reviewed: vital signs, nurses notes, lab test result(s), radiologic studies, and sb4 as a result, I will discharge patient. Consideration of Admission/Observation Escalation of care including admission/observation considered. Counseling: I had a detailed discussion with the patient and/or guardian regarding the historical points, exam findings, and any diagnostic results supporting the discharge/admit diagnosis, the presence of at least one elevated blood pressure reading (>120/80) during this emergency department visit, lab results, radiology results, the need for outpatient follow up, for definitive care, to return to the emergency department if symptoms worsen or persist or if there are any questions or concerns that arise at home. Special discussion: Based on the patient's Hx, exam, and Dx evaluation, there is no indication for emergent surgery or inpatient Tx. It is understood by the patient/guardian that if the Sx's persist or worsen they need to return immediately for re-evaluation. 01/04 14:43 Order name: CBC with Diff; Complete Time: 15:35 sb4 01/04 14:43 Order name: CMP; Complete Time: 15:55 sb4 01/04 14:43 Order name: Lipase; Complete Time: 15:55 sb4 01/04 15:36 Order name: UA Rfx Kana Cult if indicated; Complete Time: 16:22 sb4 01/04 14:43 Order name: CT Abd/Pelvis - IV Contrast Only; Complete Time: 16:17 sb4 01/04 14:43 Order name: IV Saline Lock; Complete Time: 15:27 sb4 09/21 14:43 Order name: Labs collected and sent; Complete Time: 15:27 sb4 Administered Medications: 15:27 Drug: Ondansetron IVP 4 mg IVP once; over 2 minutes Route: IVP; Site: right antecubital;kj2 16:55 Follow up: Response: No adverse reaction kj2 15:27 Drug: morphine IVP or IV 4 mg IVP once over 4 mins Route: IVP; Infused Over: 4 mins; kj2 Site: right antecubital; 16:55 Follow up: Response: No adverse reaction kj2 15:27 Drug: NS 0.9% IV 1000 ml IV at 1 bolus Per protocol; to be given as a bolus over 60 kj2 minutes Route: IV; Rate: 1 bolus; Site: right antecubital; 16:56 Follow up: IV Status: Completed infusion kj2 16:35 Drug: Rocephin IV 1 grams IV at calculated rate once; Given slow IV push per pharmacy kj2 instructions Route: IV; Rate: calculated rate; Site: right antecubital; 16:56 Follow up: IV Status: Completed infusion; IV Intake: 10ml kj2 16:40 Drug: metroNIDAZOLE IVPB 500 mg 100 ml IVPB at 200 ml/hr once over 30 mins Volume: 100 kj2 ml; Route: IVPB; Rate: 200 ml/hr; Infused Over: 30 mins; Site: right antecubital; 16:56 Follow up: IV Status: Completed infusion; IV Intake: 100ml kj2 16:52 Drug: fentaNYL (PF) IVP 50 mcg IVP once Route: IVP; Site: right antecubital; kj2 16:56 Follow up: Response: No adverse reaction kj2 Disposition: 18:27 Co-signature as Attending Physician, Rohan Cabrera MD I reviewed the patient's care rn provided by the Advanced Practice Provider and agree with the diagnosis and treatment plan. Disposition Summary: 01/04/25 16:42 Discharge Ordered Notes: Location: Home sb4 Problem: an acute exacerbation sb4 Symptoms: have improved sb4 Condition: Stable sb4 Diagnosis - Acute nonperforated sigmoid diverticulitis sb4 Followup: sb4 - With: Emergency Department - When: As needed - Reason: Fever > 102 F, Worsening of condition Discharge Instructions: - Discharge Summary Sheet sb4 - Diverticulitis, [id number] sb4 Forms: - Antibiotic Education sb4 - Prescription Opioid Use sb4 - Patient Portal Instructions sb4 - Leadership Thank You Letter sb4 Prescriptions: - ondansetron 4 mg Oral Tablet,disintegrating - take 1 tablet ORAL route every 6 hours as needed for nausea and vomiting; 10 sb4 tablet; Refills: 0, Product Selection Permitted - Augmentin 875-125 mg Oral Tablet - take 1 tablet ORAL route every 12 hours for 10 days; 20 tablet; Refills: 0, sb4 Product Selection Permitted - Flagyl 500 mg Oral Tablet - take 1 tablet ORAL route every 12 hours for 7 days; 14 tablet; Refills: 0, sb4 Product Selection Permitted - Tramadol 50 mg Oral Tablet - take 1 tablet ORAL route every 8 hours as needed; 12 tablet; Refills: 0, sb4 Product Selection Permitted Signatures: Dispatcher [employer] EDMS Rohan Cabrera MD MD rn Baxter, Heather, RN RN Cathleen Goff PA-C PAGeorges sb4 Princess Bettencourt RN RN kj2 Corrections: (The following items were deleted from the chart) 14:44 14:43 CBC+H.LAB.BRZ ordered. EDMS EDMS 14:44 14:43 COMPREHENSIVE METABOLIC PANEL+C.LAB.BRZ ordered. EDMS EDMS 14:44 14:43 LIPASE+C.LAB.BRZ ordered. EDMS EDMS 14:44 14:44 Abdomen Pelvis W Con+CT.RAD.BRZ ordered. EDMS EDMS 14:46 14:45 PMHx: Depression (Migraines); [facility]
--- NOTE | 2025-01-04 16:42 | ER ---
Nurse's Notes [facility] Name: Diamond Sterling Age: 64 yrs Sex: Female : 1960 Arrival Date: 01/04/2025 Time: 14:32 Bed 26 Private MD: Diagnosis: Acute nonperforated sigmoid diverticulitis Presentation: 01/04 14:44 Chief complaint: Lower abdominal pain and N/V/D since last night. Hx of diverticulitis. hb Coronavirus screen: At this time, the client does not indicate any symptoms associated with coronavirus-19. Ebola Screen: No symptoms or risks identified at this time. Initial Sepsis Screen: Does the patient meet any 2 criteria? No. Patient's initial sepsis screen is negative. Does the patient have a suspected source of infection? No. Patient's initial sepsis screen is negative. Risk Assessment: Do you want to hurt yourself or someone else? Patient reports no desire to harm self or others. Onset of symptoms was January 03, 2025. 14:44 Method Of Arrival: Ambulatory hb 14:44 Acuity: SANIA 3 hb Historical: - Allergies: 14:45 Benadryl; hb - PMHx: 14:45 Anxiety; Diverticulitis; Hypertension; Migraines; hb 14:46 Depression; hb - PSHx: 14:46 Cholecystectomy; section; hb - Immunization history:: Adult Immunizations unknown. - Infectious Disease History:: Denies. - Social history:: Smoking status: unknown. Screenin:[address] [facility] ED Fall Risk Assessment (Adult) History of falling in the last 3 months, kj2 including since admission No falls in past 3 months (0 pts) Confusion or Disorientation No (0 pts) Intoxicated or Sedated No (0 pts) Impaired Gait No (0 pts) Mobility Assist Device Used No (0 pt) Altered Elimination No (0 pt) Score/Fall Risk Level 0 - 2 = Low Risk Maintained a safe environment, Hourly rounding (assess needs \T\ fall precautionary measures) done. Abuse screen: Denies threats or abuse. Denies injuries from another. Nutritional screening: No deficits noted. Tuberculosis screening: No symptoms or risk factors identified. Assessment: 15:10 General: Appears in no apparent distress. Behavior is cooperative. Pain: Complains of kj2 pain in abdomen Pain currently is 6 out of 10 on a pain scale. Neuro: Level of Consciousness is awake, alert, obeys commands, Oriented to person, place, time, situation. Cardiovascular: Patient's skin is warm and dry. Respiratory: Airway is patent Respiratory effort is unlabored. GI: Reports cramping, diarrhea, nausea, vomiting, since last night. : No signs and/or symptoms were reported regarding the genitourinary system. 15:10 GI: Bowel sounds present X 4 quads. Abd is non tender. kj2 15:59 Reassessment: Patient appears in no apparent distress at this time. Patient and/or kj2 family updated on plan of care and expected duration. Pain level reassessed. Patient is alert, oriented x 3, equal unlabored respirations, skin warm/dry/pink. 16:52 Reassessment: Patient appears in no apparent distress at this time. Patient and/or kj2 family updated on plan of care and expected duration. Pain level reassessed. Patient is alert, oriented x 3, equal unlabored respirations, skin warm/dry/pink. 17:16 Reassessment: Patient appears in no apparent distress at this time. Patient and/or kj2 family updated on plan of care and expected duration. Pain level reassessed. Patient is alert, oriented x 3, equal unlabored respirations, skin warm/dry/pink. Vital Signs: 14:44 BP 183 / 92; Pulse 82; Resp 15; Temp 98.4(O); Pulse Ox 98% on R/A; Weight 63.5 kg; hb Height 4 ft. 9 in. ; Pain 5/10; 15:10 BP 150 / 76; Pulse 83; Resp 18; Pulse Ox 95% on R/A; kj2 16:10 BP 149 / 76; Pulse 82; Resp 18; Pulse Ox 98% ; kj2 17:16 BP 130 / 85; Pulse 88; Resp 20; Temp 98.2; Pulse Ox 99% on R/A; kj2 14:44 Body Mass Index 30.30 (63.50 kg, 144.78 cm) hb 14:44 Pain Scale: Adult hb ED Course: 14:34 Patient arrived in ED. ts1 14:36 Cathleen Ayala PA-C is PHCP. sb4 14:36 Rohan Cabrera MD is Attending Physician. sb4 14:45 Triage completed. hb 15:03 Princess Bettencourt, RN is Primary Nurse. kj2 15:10 Patient has correct armband on for positive identification. Bed in low position. Call kj2 light in reach. Provided Education on: call light. 15:10 Arm band placed on Patient placed in the treatment room. kj2 15:15 Inserted saline lock: 20 gauge in right antecubital area, using aseptic technique. kj2 Blood collected. Flushed with 10 mL NS. 16:02 CT Abd/Pelvis - IV Contrast Only In Process Unspecified. EDMS 16:53 No provider procedures requiring assistance completed. kj2 17:18 IV discontinued, intact, bleeding controlled, No redness/swelling at site. Pressure kj2 dressing applied. Administered Medications: 15:27 Drug: Ondansetron IVP 4 mg IVP once; over 2 minutes Route: IVP; Site: right antecubital;kj2 16:55 Follow up: Response: No adverse reaction kj2 15:27 Drug: morphine IVP or IV 4 mg IVP once over 4 mins Route: IVP; Infused Over: 4 mins; kj2 Site: right antecubital; 16:55 Follow up: Response: No adverse reaction kj2 15:27 Drug: NS 0.9% IV 1000 ml IV at 1 bolus Per protocol; to be given as a bolus over 60 kj2 minutes Route: IV; Rate: 1 bolus; Site: right antecubital; 16:56 Follow up: IV Status: Completed infusion kj2 16:35 Drug: Rocephin IV 1 grams IV at calculated rate once; Given slow IV push per pharmacy kj2 instructions Route: IV; Rate: calculated rate; Site: right antecubital; 16:56 Follow up: IV Status: Completed infusion; IV Intake: 10ml kj2 16:40 Drug: metroNIDAZOLE IVPB 500 mg 100 ml IVPB at 200 ml/hr once over 30 mins Volume: 100 kj2 ml; Route: IVPB; Rate: 200 ml/hr; Infused Over: 30 mins; Site: right antecubital; 16:56 Follow up: IV Status: Completed infusion; IV Intake: 100ml kj2 16:52 Drug: fentaNYL (PF) IVP 50 mcg IVP once Route: IVP; Site: right antecubital; kj2 16:56 Follow up: Response: No adverse reaction kj2 Medication: 15:37 VIS not applicable for this client. kj2 Intake: 16:56 IV: 10ml; Total: 10ml. kj2 16:56 IV: 100ml; Total: 110ml. kj2 Outcome: 16:42 Discharge ordered by . sb4 17:17 Discharged to home ambulatory, kj2 17:17 Condition: stable 17:17 Discharge instructions given to patient, Instructed on discharge instructions, follow up and referral plans. Demonstrated understanding of instructions, follow-up care, medications, Prescriptions given X 4, 17:18 Patient left the ED. kj2 Signatures: Dispatcher [employer] EDMS Daisy Sultana, RN RN Cathleen Goff, PA-C PA-C sb4 Temitope Jackman PAS PAS ts1 Princess Bettencourt, RN RN kj2 Corrections: (The following items were deleted from the chart) 14:46 14:45 PMHx: Depression (Migraines); hb hb
[2025-01-04] MEDS ORDERED: CEFTRIAXONE 1000 MG/VIAL ONE (16:44)
[2025-01-04] MEDS ORDERED: METRONIDAZOLE 500mg IVPB 500 MG/100 ML BAG IV ONE (16:45)
[2025-01-04] MEDS ORDERED: FENTANYL CITR 100 MCG/2 ML ONE (16:46)
[2025-01-04 17:28] VITALS: BP 130/85; TEMP 98.2; O2SAT 99
== END 2025-01-04 17:18 | disposition home or self-care (01) ==
LOC: ER 14:32
DX: K57.32 Diverticulitis of large intestine without perforation or abscess without bleeding (principal); R10.30 Lower abdominal pain, unspecified; R19.7 Diarrhea, unspecified; R11.2 Nausea with vomiting, unspecified; F41.9 Anxiety disorder, unspecified; I10 Essential (primary) hypertension; F32.A Depression, unspecified; G43.909 Migraine, unspecified, not intractable, without status migrainosus
CPT/HCPCS: 96365; 96361; 85025; 36415; 81003; 83690; 80053; 74177; 96375; 99284; Q9967; J3010; J2405; J7030; J0696